=== PATIENT | male | born 1940 | race Caucasian/White ===

== ENCOUNTER 2020-10-07 08:06 | Outpatient (REF) | payer MEDICARE, SELFPAY ==
[2020-10-07 10:13] LABS: MANUAL DIFF FLAG NO
[2020-10-07 10:14] LABS: Basophils Absolute Auto 0.1 X10*3/uL (0.0-0.2); Basophils Percent Auto 1.1 % (0-2); Eosinophils Absolute Auto 0.2 X10*3/uL (0.0-0.4); Eosinophils Percent Auto 2.5 % (0-4); Hematocrit 35.1 % (42-52); Hemoglobin 11.4 g/dl (14.0-18.0); Imm Gran Abs Auto 0.01 X10*3/uL (0.00-0.03); Imm Gran Pct Auto 0.2 % (0.0-0.4); Lymphocytes Absolute Auto 2.1 X10*3/uL (1.2-4.9); Lymphocytes Percent Auto 32.6 % (20-40); Mean Corpuscular HGB Conc 32.5 g/dl (31.0-36.0); Mean Corpuscular Hemoglobin 28.9 pg (27.0-33.0); Mean Corpuscular Volume 88.9 fL (80-98); Mean Platelet Volume 11.1 fL (9.4-12.4); Monocytes Absolute Auto 0.6 X10*3/uL (0.1-1.2); Monocytes Percent Auto 9.6 % (2-11); Neutrophils Absolute Auto 3.5 X10*3/uL (2.0-8.3); Platelet Count 303 X10*3/uL (160-400); Red Blood Count 3.95 X10*6/uL (4.60-5.80); Red Cell Distribution Width 13.3 % (11.0-16.0); White Blood Count 6.5 X10*3/uL (4.8-10.8)
[2020-10-07 10:42] LABS: Alanine Aminotransferase 22 U/L (0-40); Albumin Level 4.1 g/dL (3.5-5.0); Alkaline Phosphatase 58 U/L (39-117); Anion Gap 15 (12-20); Aspartate Amino Transferase 23 U/L (5-37); Bilirubin Total 0.3 mg/dL (0.0-1.0); Blood Urea Nitrogen 21 mg/dL (9-16); Carbon Dioxide 24 mmol/L (22-29); Chloride 107 mmol/L (96-108); Cholesterol 150 mg/dL; Estimated Glomerular Filt Rate 60; Glucose Fasting 88 mg/dL (60-99); HDL Cholesterol 43 mg/dL; LDL Cholesterol Calculated 71 mg/dl; Potassium 5.3 mmol/l (3.3-5.1); Sodium 141 mmol/L (135-145); Total Protein 7.6 g/dL (6.5-8.0); Triglycerides 182 mg/dL
[2020-10-07 11:07] LABS: Thyroid Stimulating Hormone 1.59 uIU/mL (0.32-4.0)
[2020-10-07 11:24] LABS: Creatinine Urine 86.01 mg/dL; Microalbum/Creatinine Ratio Ur 5.8 ug/mg cr
[2020-10-07 11:43] LABS: Prostate Specific Antigen 6.44 ng/mL (<0.05-4.0)
== END 2020-10-07 08:07 | disposition home or self-care (01) ==
LOC: HO.10HDL 08:06
PROVIDERS: Visit Provider Physician Assistant
DX: E11.9 Type 2 diabetes mellitus without complications (principal); E78.5 Hyperlipidemia, unspecified; I63.9 Cerebral infarction, unspecified; Z12.5 Encounter for screening for malignant neoplasm of prostate
CPT/HCPCS: 36415; 80053; 80061; 82043; 84153; 84443; 85025

== ENCOUNTER 2021-02-12 07:48 | Outpatient (REF) | payer MEDICARE, SELFPAY ==
[2021-02-12 10:18] LABS: Hematocrit 34.1 % (42-52); Hemoglobin 10.8 g/dl (14.0-18.0); Mean Corpuscular HGB Conc 31.7 g/dl (31.0-36.0); Mean Corpuscular Hemoglobin 28.8 pg (27.0-33.0); Mean Corpuscular Volume 90.9 fL (80-98); Platelet Count 300 X10*3/uL (160-400); Red Blood Count 3.75 X10*6/uL (4.60-5.80); Red Cell Distribution Width 13.9 % (11.0-16.0); White Blood Count 6.4 X10*3/uL (4.8-10.8)
[2021-02-12 10:29] LABS: Estimated Average Glucose 186 mg/dL; Hemoglobin A1c % 8.1 %
[2021-02-12 10:53] LABS: Alanine Aminotransferase 18 U/L (0-40); Albumin Level 4.1 g/dL (3.5-5.0); Alkaline Phosphatase 57 U/L (39-117); Anion Gap 12 (12-20); Aspartate Amino Transferase 18 U/L (5-37); Bilirubin Direct 0.2 mg/dL (0.0-0.5); Bilirubin Total 0.4 mg/dL (0.0-1.0); Blood Urea Nitrogen 31 mg/dL (9-16); Carbon Dioxide 26 mmol/L (22-29); Chloride 106 mmol/L (96-108); Cholesterol 148 mg/dL; Estimated Glomerular Filt Rate 55; Glucose Random 102 mg/dL (60-115); HDL Cholesterol 47 mg/dL; LDL Cholesterol Calculated 79 mg/dl; Potassium 5.4 mmol/L (3.3-5.1); Sodium 139 mmol/L (135-145); Total Protein 7.5 g/dL (6.5-8.0); Triglycerides 110 mg/dL
[2021-02-12 11:06] LABS: Thyroid Stimulating Hormone 1.95 uIU/mL (0.32-4.0)
[2021-02-12 11:23] LABS: Folate 17.7 ng/mL (> or = 4.0); Vitamin B12 < 146 pg/mL (200-900)
[2021-02-16 12:47] LABS: Vitamin D 25-OH, D2 <4 ng/mL; Vitamin D 25-OH, D3 39 ng/mL; Vitamin D 25-OH, Total 39 ng/mL (30-100)
== END 2021-02-12 07:49 | disposition home or self-care (01) ==
LOC: HO.10HDL 07:48
PROVIDERS: Visit Provider Internal Medicine
DX: E11.9 Type 2 diabetes mellitus without complications (principal)
CPT/HCPCS: 36415; 80048; 80061; 80076; 82306; 82607; 82746; 83036; 84443; 85027

== ENCOUNTER 2021-08-20 08:03 | Outpatient (REF) | payer MEDICARE, SELFPAY ==
[2021-08-20 10:31] LABS: Hematocrit 34.6 % (42-52); Hemoglobin 11.3 g/dl (14.0-18.0); Mean Corpuscular HGB Conc 32.7 g/dl (31.0-36.0); Mean Corpuscular Hemoglobin 30.1 pg (27.0-33.0); Mean Corpuscular Volume 92.3 fL (80-98); Mean Platelet Volume 10.9 fL (9.4-12.4); Platelet Count 288 X10*3/uL (160-400); Red Blood Count 3.75 X10*6/uL (4.60-5.80); Red Cell Distribution Width 12.8 % (11.0-16.0); White Blood Count 6.5 X10*3/uL (4.8-10.8)
[2021-08-20 10:53] LABS: Creatinine Urine 88.87 mg/dL; Microalbum/Creatinine Ratio Ur 6.7 ug/mg cr
[2021-08-20 11:05] LABS: Alanine Aminotransferase 21 U/L (0-40); Alkaline Phosphatase 57 U/L (39-117); Aspartate Amino Transferase 19 U/L (5-37); Bilirubin Direct 0.2 mg/dL (0.0-0.5); Bilirubin Total 0.5 mg/dL (0.0-1.0); Cholesterol 149 mg/dL; HDL Cholesterol 39 mg/dL; LDL Cholesterol Calculated 83 mg/dl; Total Protein 7.2 g/dL (6.5-8.0); Triglycerides 138 mg/dL
[2021-08-20 11:09] LABS: Estimated Average Glucose 174 mg/dL; Hemoglobin A1c % 7.7 %
[2021-08-20 11:12] LABS: Thyroid Stimulating Hormone 2.19 uIU/mL (0.32-4.0)
== END 2021-08-20 08:04 | disposition home or self-care (01) ==
LOC: HO.10HDL 08:03
PROVIDERS: Visit Provider Internal Medicine
DX: D64.9 Anemia, unspecified (principal); E11.9 Type 2 diabetes mellitus without complications
CPT/HCPCS: 36415; 80061; 80076; 82043; 83036; 84443; 85027

== ENCOUNTER 2022-10-21 07:59 | Outpatient (REF) | payer MEDICARE, SELFPAY ==
[2022-10-21 10:42] LABS: Appearance Urine Clear; Color Urine Yellow; Glucose Urine UA >=1000 mg/dL (Negative); Leukocyte Esterase Urine Negative (Negative); Nitrite Urine Negative (Negative); PH 5.5 (5.0-9.0); UMIC TRIGGER UA YES; Urine Blood Negative (Negative); Urine Ketones Negative (Negative); Urine Protein Negative (Neg-Trace)
[2022-10-21 10:49] LABS: Hematocrit 36.3 % (42.0-52.0); Hemoglobin 11.7 g/dl (14.0-18.0); Mean Corpuscular HGB Conc 32.2 g/dl (31.0-36.0); Mean Corpuscular Hemoglobin 28.9 pg (27.0-33.0); Mean Corpuscular Volume 89.6 fL (80.0-98.0); Mean Platelet Volume 10.8 fL (9.4-12.4); Platelet Count 387 X10*3/uL (160-400); Red Blood Count 4.05 X10*6/uL (4.60-5.80); Red Cell Distribution Width 13.2 % (11.0-16.0); White Blood Count 6.6 X10*3/uL (4.8-10.8)
[2022-10-21 10:56] LABS: Bacteria Urine None Seen (None Seen); Hyaline Casts Urine 0-2 /LPF (0-2); RBC Urine 0-2 /HPF (0-2); Squamous Epithelial Cell Urine 0-2 /HPF (0-2); WBC Urine 0-5 /HPF (0-5)
[2022-10-21 11:44] LABS: Alanine Aminotransferase 20 U/L (0-40); Albumin Level 4.2 g/dL (3.5-5.0); Alkaline Phosphatase 64 U/L (39-117); Anion Gap 13 (12-20); Aspartate Amino Transferase 19 U/L (5-37); Bilirubin Total 0.4 mg/dL (0.0-1.0); Blood Urea Nitrogen 26 mg/dL (9-16); Calcium 9.7 mg/dL (8.4-10.2); Carbon Dioxide 27 mmol/L (22-29); Chloride 106 mmol/L (96-108); Cholesterol 171 mg/dL; Creatinine Urine 80.83 mg/dL; Estimated Average Glucose 203 mg/dL; Estimated Glomerular Filt Rate 57; Glucose Random 129 mg/dL (60-115); HDL Cholesterol 44 mg/dL; Hemoglobin A1c % 8.7 %; LDL Cholesterol Calculated 99 mg/dl; Microalbum/Creatinine Ratio Ur 7.4 ug/mg cr; Potassium 5.2 mmol/L (3.3-5.1); Sodium 141 mmol/L (135-145); Total Protein 7.8 g/dL (6.5-8.0); Triglycerides 143 mg/dL
[2022-10-21 11:51] LABS: Bilirubin Direct < 0.2 mg/dL (0.0-0.5)
== END 2022-10-21 08:00 | disposition home or self-care (01) ==
LOC: HO.10HDL 07:59
PROVIDERS: Visit Provider Internal Medicine
DX: M19.90 Unspecified osteoarthritis, unspecified site (principal); I63.9 Cerebral infarction, unspecified; E11.9 Type 2 diabetes mellitus without complications; E78.5 Hyperlipidemia, unspecified
CPT/HCPCS: 36415; 80048; 80061; 80076; 81001; 82043; 83036; 85027

== ENCOUNTER 2023-01-31 08:13 | Outpatient (REF) | payer MEDICARE, SELFPAY ==
[2023-01-31 10:42] LABS: Hematocrit 33.3 % (42.0-52.0); Hemoglobin 10.6 g/dl (14.0-18.0); Mean Corpuscular HGB Conc 31.8 g/dl (31.0-36.0); Mean Corpuscular Hemoglobin 28.7 pg (27.0-33.0); Mean Corpuscular Volume 90.2 fL (80.0-98.0); Mean Platelet Volume 10.7 fL (9.4-12.4); Platelet Count 344 X10*3/uL (160-400); Red Blood Count 3.69 X10*6/uL (4.60-5.80); Red Cell Distribution Width 13.8 % (11.0-16.0); White Blood Count 7.3 X10*3/uL (4.8-10.8)
[2023-01-31 10:56] LABS: Estimated Average Glucose 154 mg/dL
[2023-01-31 10:57] LABS: Anion Gap 14 (12-20); Blood Urea Nitrogen 31 mg/dL (9-16); Calcium 9.1 mg/dL (8.4-10.2); Carbon Dioxide 25 mmol/L (22-29); Chloride 107 mmol/L (96-108); Estimated Glomerular Filt Rate > 60; Glucose Random 91 mg/dL (60-115); Potassium 5.5 mmol/L (3.3-5.1); Sodium 140 mmol/L (135-145)
[2023-01-31 11:04] LABS: Appearance Urine Clear; Color Urine Yellow; Glucose Urine UA 100 mg/dL (Negative); Leukocyte Esterase Urine Negative (Negative); Nitrite Urine Negative (Negative); PH 6.5 (5.0-9.0); Urine Blood Negative (Negative); Urine Ketones Negative (Negative); Urine Protein Negative (Neg-Trace)
== END 2023-01-31 08:14 | disposition home or self-care (01) ==
LOC: HO.10HDL 08:13
PROVIDERS: Visit Provider Internal Medicine
DX: E78.5 Hyperlipidemia, unspecified (principal); I63.9 Cerebral infarction, unspecified; M19.90 Unspecified osteoarthritis, unspecified site; E11.9 Type 2 diabetes mellitus without complications
CPT/HCPCS: 36415; 80048; 81003; 83036; 85027

== ENCOUNTER 2023-02-04 16:24 | Emergency (ER) | payer OTHER, MEDICARE, SELFPAY ==
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
[2023-02-04 17:07] VITALS: BP 136/68; PULSE 91; RESP 18; TEMP 36.6; O2SAT 100; BMI 22.9
--- NOTE | 2023-02-04 17:14 | PC.NURSE ---
amb with steady gait denies dizziness pain or weakness aox4 will follow up with pcp or return with any worsening symptoms
== END 2023-02-04 17:34 | disposition home or self-care (01) ==
PROVIDERS: Emergency Provider Emergency Medicine; PCP Internal Medicine
DX: M79.622 Pain in left upper arm (principal); E11.9 Type 2 diabetes mellitus without complications; Z79.4 Long term (current) use of insulin; Z79.899 Other long term (current) drug therapy
CPT/HCPCS: 99282

== ENCOUNTER 2023-07-28 07:51 | Outpatient (REF) | payer MEDICARE, SELFPAY ==
[2023-07-28 10:57] LABS: Hematocrit 35.5 % (42.0-52.0); Hemoglobin 11.4 g/dl (14.0-18.0); Mean Corpuscular HGB Conc 32.1 g/dl (31.0-36.0); Mean Corpuscular Hemoglobin 29.2 pg (27.0-33.0); Mean Corpuscular Volume 90.8 fL (80.0-98.0); Mean Platelet Volume 10.5 fL (9.4-12.4); Platelet Count 332 X10*3/uL (160-400); Red Blood Count 3.91 X10*6/uL (4.60-5.80); Red Cell Distribution Width 13.4 % (11.0-16.0); White Blood Count 6.7 X10*3/uL (4.8-10.8)
[2023-07-28 11:24] LABS: Estimated Average Glucose 146 mg/dL; Hemoglobin A1c % 6.7 % (<6.0)
[2023-07-28 11:29] LABS: Alanine Aminotransferase 17 U/L (0-40); Albumin Level 4.1 g/dL (3.5-5.0); Alkaline Phosphatase 60 U/L (39-117); Anion Gap 11 (12-20); Aspartate Amino Transferase 20 U/L (5-37); Bilirubin Direct 0.1 mg/dL (0.0-0.5); Bilirubin Total 0.4 mg/dL (0.0-1.0); Blood Urea Nitrogen 22 mg/dL (9-16); Calcium 9.7 mg/dL (8.4-10.2); Carbon Dioxide 26 mmol/L (22-29); Chloride 110 mmol/L (96-108); Cholesterol 146 mg/dL (<200); Estimated Glomerular Filt Rate 53; Glucose Random 96 mg/dL (60-115); HDL Cholesterol 48 mg/dL (>40); LDL Cholesterol Calculated 78 mg/dL (<100); Potassium 5.2 mmol/L (3.3-5.1); Sodium 142 mmol/L (135-145); Total Protein 7.8 g/dL (6.5-8.0); Triglycerides 100 mg/dL (<150)
[2023-07-28 11:32] LABS: Thyroid Stimulating Hormone 1.91 uIU/mL (0.32-4.0)
[2023-07-28 11:33] LABS: Microalbumin Urine < 5.0 mg/L
[2023-07-28 15:35] LABS: Prostate Specific Antigen Scr 10.11 ng/mL (<0.05-4.0)
== END 2023-07-28 07:52 | disposition home or self-care (01) ==
LOC: HO.10HDL 07:51
PROVIDERS: Visit Provider Internal Medicine
DX: Z12.5 Encounter for screening for malignant neoplasm of prostate (principal); E11.9 Type 2 diabetes mellitus without complications
CPT/HCPCS: 36415; 80048; 80061; 80076; 82043; 82570; 83036; 84153; 84443; 85027

== ENCOUNTER 2023-08-04 09:16 | Outpatient (AMB) | payer MEDICARE, SELFPAY ==
--- NOTE | 2023-08-04 09:25 | MHC.PC.OV ---
Vital Signs 08/04/23 09:26 Height 5 ft 10 in Weight 163 lb 4 oz BMI 23.4 BP 120/58 L Blood Pressure Location Rt brachial Position Sitting Pulse 80 Pulse Source Pulse Oximeter Pulse Oximetry (%) 97 Oxygen Delivery Method Room Air Intake Visit Reasons: 6M follow up Intake Note: Patient is here to follow up on HTN, DM, Hyperlipidemia. 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 Patient is at baseline state of health. Since he started taking the 2 kinds of insulin, his sugars are more in range. He is able to function and do all activities of daily living. Reporting symptoms of sinus congestion, sore throat and difficulty swallowing. Low-grade fever. No family member is sick. No recent travel. Patient reports symptoms of malaise and fatigue in the past few days. [facility] Medical History Cerebrovascular accident (CVA) determined by clinical assessment Essential hypertension Hypercholesterolemia Medicare annual wellness visit, initial Osteoarthritis Type 2 diabetes mellitus without complications Surgical History History of colonoscopy History of hernia repair History of appendectomy Family History Father Medical history unknown Mother Medical history unknown Social History Housing: House Alcohol intake: current Alcohol intake frequency: holidays/special occasions only Patient Tobacco Use Status: Never used Tobacco e-Cigarette/Vaping Use: Never Used Second Hand Smoke Exposure: No service: No Current occupational status: retired Cognitive needs: No Hearing needs: No Vision needs: Yes Questionnaire Thrive Questionnaire Date Thrive assessed: 02/03/23 LAKEISHA-7 AMB Questionnaire LAKEISHA-7 Date LAKEISHA - 7 assessed: 02/03/23 Source: Developed by Drs. Silvio Montes, Yaharia Krause, Mauricio Jenkins and colleagues, with an educational vinayak from [employer]. Physical exam (Primary Care) Vital Signs: Last Vital Signs Pulse 80 08/04/23 09:26 BP 120/58 L 08/04/23 09:26 Pulse Ox 97 08/04/23 09:26 Oxygen Delivery Method Room Air 08/04/23 09:26 BMI result Body Mass Index 23.4 Tobacco/Smoking Status: Tobacco use Status Tobacco use date assessed 08/04/23 08/04/23 09:32 Patient Tobacco Use Status Never used Tobacco 08/04/23 09:32 e-Cigarette/Vaping Use Never Used 08/04/23 09:32 Thrive Assessment: Date of Thrive Assessment Date Thrive assessed 02/03/23 08/04/23 09:32 Const General: cooperative and healthy appearing Nutritional Appearance: well nourished Orientation/consciousness: patient oriented x3 Limitations: no limitations HENMT Head: Yes normal to inspection Eyes General: appearance normal, both eyes and all related structures Neck Neck: Yes normal visual inspection Chest Chest palpation & inspection: normal palpation of entire chest wall Resp Effort & Inspection: normal respiratory effort Neuro General: patient oriented x3 Assessment and Plan Assessment & Plan (1) Elevated PSA: Code(s): R97.20 - Elevated prostate specific antigen [PSA] Plan: A referral to urologist has been made. Patient was made aware of his elevated PSA and the possibilities that cause elevated PSA. (2) Cerebrovascular accident (CVA) determined by clinical assessment: Code(s): I63.9 - Cerebral infarction, unspecified Plan: This condition is stable. 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 (3) Type 2 diabetes mellitus without complications: Code(s): E11.9 - Type 2 diabetes mellitus without complications Plan: A1c is improved. Current A1c level is 6.7. Continue medications at same dosage. (4) Essential hypertension: Code(s): I10 - Essential (primary) hypertension Plan: Blood pressure is stable. Continue medications at same dosage. (5) Upper respiratory tract infection: Code(s): J06.9 - Acute upper respiratory infection, unspecified Qualifiers: URI type: unspecified viral URI Qualified Code(s): J06.9 - Acute upper respiratory infection, unspecified Plan: . Increase fluid intake. Tylenol for aches and pains. If symptoms worsen, follow-up here for a recheck. No antibiotics necessary. Orders: Referrals Urology Referral R97.20 - Elevated prostate specific antigen [PSA] Medications: Refilled insulin lispro (Humalog KwikPen U-200 Insulin) 10 units (0.05 mL) subcut TID 6 mL 1RF insulin glargine (Lantus Solostar U-100 Insulin) 20 units (0.2 mL) subcut BEDTIME 15 mL 5RF Coding Level of Care Code Est Pt Level 4 (02868) Diagnoses Elevated PSA R97.20 Cerebrovascular accident (CVA) determined by clinical assessment I63.9 Type 2 diabetes mellitus without complications E11.9 Essential hypertension I10 Viral upper respiratory tract infection J06.9 URI type: unspecified viral URI
[2023-08-04 09:26] VITALS: BP 120/58; PULSE 80; O2SAT 97; BMI 23.4
== END 2023-08-04 10:18 | disposition home or self-care (01) ==
PROVIDERS: PCP Internal Medicine; Visit Provider Internal Medicine
DX: R97.20 Elevated prostate specific antigen [PSA] (principal); I69.354 Hemiplegia and hemiparesis following cerebral infarction affecting left non-dominant side; E11.9 Type 2 diabetes mellitus without complications; I10 Essential (primary) hypertension
CPT/HCPCS: 99214

== ENCOUNTER 2023-10-27 07:59 | Outpatient (REF) | payer MEDICARE, SELFPAY ==
[2023-10-27 10:25] LABS: Hematocrit 35.4 % (42.0-52.0); Hemoglobin 11.5 g/dl (14.0-18.0); Mean Corpuscular HGB Conc 32.5 g/dl (31.0-36.0); Mean Corpuscular Hemoglobin 28.5 pg (27.0-33.0); Mean Corpuscular Volume 87.8 fL (80.0-98.0); Mean Platelet Volume 10.2 fL (9.4-12.4); Platelet Count 346 X10*3/uL (160-400); Red Blood Count 4.03 X10*6/uL (4.60-5.80); Red Cell Distribution Width 13.2 % (11.0-16.0); White Blood Count 6.1 X10*3/uL (4.8-10.8)
[2023-10-27 10:50] LABS: Alanine Aminotransferase 17 U/L (0-40); Albumin Level 3.7 g/dL (3.5-5.0); Alkaline Phosphatase 59 U/L (39-117); Anion Gap 16 (12-20); Aspartate Amino Transferase 22 U/L (5-37); Bilirubin Direct 0.2 mg/dL (0.0-0.5); Bilirubin Total 0.4 mg/dL (0.0-1.0); Blood Urea Nitrogen 38 mg/dL (9-16); Calcium 9.2 mg/dL (8.4-10.2); Carbon Dioxide 23 mmol/L (22-29); Chloride 102 mmol/L (96-108); Cholesterol 120 mg/dL (<200); Estimated Glomerular Filt Rate 50; Glucose Random 138 mg/dL (60-115); HDL Cholesterol 33 mg/dL (>40); LDL Cholesterol Calculated 63 mg/dL (<100); Sodium 136 mmol/L (135-145); Total Protein 7.8 g/dL (6.5-8.0); Triglycerides 123 mg/dL (<150)
[2023-10-27 11:00] LABS: Thyroid Stimulating Hormone 1.66 uIU/mL (0.32-4.0)
[2023-10-27 11:01] LABS: Prostate Specific Antigen Scr 8.95 ng/mL (<0.05-4.0)
[2023-10-27 11:02] LABS: Estimated Average Glucose 169 mg/dL; Hemoglobin A1c % 7.5 % (<6.0)
== END 2023-10-27 08:00 | disposition home or self-care (01) ==
LOC: HO.10HDL 07:59
PROVIDERS: Visit Provider Internal Medicine
DX: Z12.5 Encounter for screening for malignant neoplasm of prostate (principal); I10 Essential (primary) hypertension; E11.9 Type 2 diabetes mellitus without complications; R97.20 Elevated prostate specific antigen [PSA]
CPT/HCPCS: 36415; 80048; 80061; 80076; 83036; 84153; 84443; 85027

== ENCOUNTER 2023-11-03 12:28 | Outpatient (AMB) | payer MEDICARE, SELFPAY ==
--- NOTE | 2023-11-03 12:40 | A.OFFPC_ITS ---
Vital Signs 11/03/23 12:41 Height 5 ft 10 in Weight 160 lb 4 oz BMI 23.0 BP 120/70 Blood Pressure Location Rt brachial Position Sitting Pulse 70 Pulse Source Pulse Oximeter Pulse Oximetry (%) 97 Oxygen Delivery Method Room Air Intake Visit Reasons: PE Intake Note: Patient is here today for a physical. Tests Superintendent Required: No Sand Operator: Not Required per policy Accompanied by: Self / Same As Patient Allergies No Known Allergies Allergy (Verified 11/03/23 13:31) Medication List - Last Reconciled 11/03/23 by Garfield Gongora MD blood sugar diagnostic (FreeStyle Lite Strips) 1 strip miscellaneous BID ferrous sulfate (Feosol) 325 mg PO DAILY insulin glargine (Lantus Solostar U-100 Insulin) 20 units (0.2 mL) subcut BEDTIME insulin lispro (Humalog KwikPen U-200 Insulin) 10 units (0.05 mL) subcut TID lisinopril 20 mg PO DAILY metformin 1,000 mg PO BID pen needle, diabetic (BD Ultra-Fine Short Pen Needle) 1 ea miscellaneous DAILY simvastatin 20 mg PO BEDTIME Tobacco use date assessed: 11/03/23 HPI PE HPI Details 83-year-old male presents to the office requesting an annual physical. Since last visit patient had a bout of respiratory illness which lasted 2 weeks. Illness has finally subsided. COUNT INCLUDES THE [facility] Medical History Osteoarthritis Cerebrovascular accident (CVA) determined by clinical assessment Hypercholesterolemia Essential hypertension Type 2 diabetes mellitus without complications Medicare annual wellness visit, initial Surgical History History of colonoscopy History of hernia repair History of appendectomy Family History Father Medical history unknown Mother Medical history unknown Social History Housing: House Alcohol intake: current Alcohol intake frequency: holidays/special occasions only Patient Tobacco Use Status: Never used Tobacco e-Cigarette/Vaping Use: Never Used Second Hand Smoke Exposure: No service: No Current occupational status: retired Cognitive needs: No Hearing needs: No Vision needs: Yes Questionnaire Thrive Questionnaire Date Thrive assessed: 02/03/23 LAKEISHA-7 AMB Questionnaire LAKEISHA-7 Date LAKEISHA - 7 assessed: 02/03/23 Source: Developed by Drs. Silvio Montes, Yahaira Krause, Mauricio Jenkins and colleagues, with an educational vinayak from [employer]. Physical exam (Primary Care) Vital Signs: Last Vital Signs Pulse 70 11/03/23 12:41 BP 120/70 11/03/23 12:41 Pulse Ox 97 11/03/23 12:41 Oxygen Delivery Method Room Air 11/03/23 12:41 BMI result Body Mass Index 23.0 Tobacco/Smoking Status: Tobacco use Status Tobacco use date assessed 11/03/23 11/03/23 12:50 Patient Tobacco Use Status Never used Tobacco 11/03/23 12:50 e-Cigarette/Vaping Use Never Used 11/03/23 12:50 Thrive Assessment: Date of Thrive Assessment Date Thrive assessed 02/03/23 11/03/23 12:50 Const General: cooperative and healthy appearing Nutritional Appearance: well nourished Orientation/consciousness: patient oriented x3 Limitations: no limitations HENMT Head: Yes normal to inspection Eyes General: appearance normal, both eyes and all related structures Neck Neck: Yes normal visual inspection Chest Chest palpation & inspection: normal palpation of entire chest wall Resp Effort & Inspection: normal respiratory effort Neuro Other: Fixed flexion deformity. General: patient oriented x3 Assessment and Plan Assessment & Plan (1) Adult general medical exam: Code(s): Z00.00 - Encounter for general adult medical examination without abnormal findings Plan: Up-to-date on the flu shot. (2) Cerebrovascular accident (CVA) determined by clinical assessment: Code(s): I63.9 - Cerebral infarction, unspecified Plan: Condition is stable. (3) Type 2 diabetes mellitus without complications: Code(s): E11.9 - Type 2 diabetes mellitus without complications Plan: A1c is trending upwards. Continue medications at same dosage. (4) Elevated PSA: Code(s): R97.20 - Elevated prostate specific antigen [PSA] Plan: Patient has an appointment with the urologist in November. Coding Level of Care Code Est Pt Prev Care >65y(94052) Diagnoses Adult general medical exam Z00.00 Cerebrovascular accident (CVA) determined by clinical assessment I63.9 Type 2 diabetes mellitus without complications E11.9 Elevated PSA R97.20
[2023-11-03 12:41] VITALS: BP 120/70; PULSE 70; O2SAT 97; BMI 23.0
== END 2023-11-03 13:28 | disposition home or self-care (01) ==
PROVIDERS: Visit Provider Internal Medicine
DX: Z00.00 Encounter for general adult medical examination without abnormal findings (principal); I63.9 Cerebral infarction, unspecified; E11.9 Type 2 diabetes mellitus without complications; R97.20 Elevated prostate specific antigen [PSA]
CPT/HCPCS: 99397

== ENCOUNTER 2023-11-17 09:54 | Outpatient (AMB) | payer MEDICARE, SELFPAY ==
--- NOTE | 2023-11-17 10:39 | MHC.OFFVIS ---
Intake Intake Visit Reasons: Elevated PSA 10.11 Intake Note: New Patient is Present for Elevated PSA Current PSA 10.11 Patient has never seen a Urologist was referred by His Primary physician Antibiotic Allergies: None Blood Thinner: Aspirin Allergies No Known Allergies Allergy (Verified 11/17/23 10:41) Medication List - Last Reconciled 11/17/23 by Sukumar Zhao MD aspirin (Adult Aspirin Regimen) 81 mg PO DAILY blood sugar diagnostic (FreeStyle Lite Strips) 1 strip miscellaneous BID ferrous sulfate (Feosol) 325 mg PO DAILY finasteride 5 mg PO DAILY 90 days insulin glargine (Lantus Solostar U-100 Insulin) 20 units (0.2 mL) subcut BEDTIME insulin lispro (Humalog KwikPen U-200 Insulin) 10 units (0.05 mL) subcut TID lisinopril 20 mg PO DAILY metformin 1,000 mg PO BID pen needle, diabetic (BD Ultra-Fine Short Pen Needle) 1 ea miscellaneous DAILY simvastatin 20 mg PO BEDTIME HPI HPI Comments History of Present Illness Details Carlos is a pleasant male. He is a patient of Dr. [place]. He is seen for the following urologic conditions - elevated PSA Elevated PSA Found through primary care PSA 08/06 10.1, 11/05 8.9 MARYLOU 2+, minimal nodules Trial finasteride [facility] Medical History Osteoarthritis Cerebrovascular accident (CVA) determined by clinical assessment Hypercholesterolemia Essential hypertension Type 2 diabetes mellitus without complications Medicare annual wellness visit, initial Surgical History History of colonoscopy History of hernia repair History of appendectomy Family History Father Medical history unknown Mother Medical history unknown Social History Housing: House Alcohol intake: current Alcohol intake frequency: holidays/special occasions only Patient Tobacco Use Status: Never used Tobacco e-Cigarette/Vaping Use: Never Used Second Hand Smoke Exposure: No service: No Current occupational status: retired Cognitive needs: No Hearing needs: No Vision needs: Yes Review of Systems Const Denies chills and Denies fever(s) Card Reports no additional complaints and Denies syncope Resp Denies cough GI Denies abdominal pain and Denies heartburn Reports as per HPI and Denies change in libido Neuro Denies syncope Psych Denies change in libido Endo Denies change in libido Physical Exam Const General: cooperative, healthy appearing, comfortable and no acute distress Orientation/consciousness: patient oriented x3 HEENT Face and sinus: Yes normal facial exam Mouth: moist mucous membranes Neck Neck: Yes normal visual inspection, Yes full ROM and Yes trachea midline Chest Chest palpation & inspection: normal inspection of the chest Resp Effort & Inspection: normal respiratory effort, able to speak in complete sentences and no respiratory distress GI Inspection: Yes normal to inspection Rectal Exam - Male: Yes normal sphincter tone and Yes prostate normal Male General Exam: Yes normal external exam Penis: normal penis and circumcised Meatus: meatus normal Scrotum: scrotum normal Testes: Testes normal Back/Spine/Pelvis Cervical Spine: normal cervical lordosis Thoracic/Lumbar Spine: thoracic and lumbar spine normal to inspection Skin General skin exam: no rashes or lesions noted Neuro General: patient oriented x3, gait normal, tone normal and moves all extremities Extrem General: Yes normal to inspection and Yes capillary refill normal Assessment & Plan Assessment & Plan (1) Elevated PSA: Code(s): R97.20 - Elevated prostate specific antigen [PSA] Plan Four month follow-up PSA Trial finasteride Orders: Orders PSA,Total (Free>4and<10) 4 Months R97.20 - Elevated prostate specific antigen [PSA] Medications: New finasteride 5 mg PO DAILY 90 days 90 tabs 1RF R97.20 - Elevated prostate specific antigen [PSA] Patient Instructions: Imaging studies, laboratory and physical exam results were discussed and reviewed in detail. No major barriers to patient understanding were identified. An opportunity to ask questions regarding the treatment plan was provided. All questions were answered. The patient expressed understanding and agreement with the above treatment plan. The patient is aware they should contact our office by phone for worsening of their current condition or the appearance of new urologic symptoms. Compliance is encouraged with any medications and followup testing that is ordered. It is a privilege to participate in the urologic care of your patient. If you have any questions or concerns regarding treatment for the above conditions, or other urologic issues, please do not hesitate to contact me. The office telephone contact is [phone]. This note is constructed using voice recognition software. While every effort has been made to ensure accuracy toppiece chopper errors may have been included. Yours sincerely, Dr Sukumar Zhao MD, LES[facility] - Urology Providers of Expert, Compassionate Care for the Genitourinary System Coding Level of Care Code New Pt Level 4 (03684) Diagnoses Elevated PSA R97.20
== END 2023-11-17 10:57 | disposition home or self-care (01) ==
PROVIDERS: PCP Internal Medicine; Visit Provider Urology
DX: R97.20 Elevated prostate specific antigen [PSA] (principal)
CPT/HCPCS: 99204

== ENCOUNTER → 2023-11-17 09:54 | Outpatient (BNVA) | payer MEDICARE, OTHER, SELFPAY | PROVIDERS: PCP Internal Medicine; Visit Provider Urology | DX: R97.20 Elevated prostate specific antigen [PSA] (principal) | CPT/HCPCS: 99202 ==

== ENCOUNTER 2024-02-16 08:25 | Outpatient (AMB) | payer MEDICARE, SELFPAY ==
--- NOTE | 2024-02-16 08:44 | A.OFFPC_ITS ---
Vital Signs 02/16/24 08:46 Height 5 ft 10 in Weight 168 lb 4 oz BMI 24.1 BP 108/60 Blood Pressure Location Lt brachial Position Sitting Pulse 95 Pulse Source Pulse Oximeter Pulse Oximetry (%) 95 Oxygen Delivery Method Room Air Intake Visit Reasons: 3M follow up Intake Note: Patient is here to follow up on DM, Hyperlipidemia, HTN . Senior Network Administrator Required: No Denture Technician: Not Required per policy Accompanied by: Self / Same As Patient Allergies No Known Allergies Allergy (Verified 02/26/24 19:12) Medication List - Last Reconciled 02/26/24 by Garfield Gongora MD aspirin (Adult Aspirin Regimen) 81 mg PO DAILY blood sugar diagnostic (FreeStyle Lite Strips) 1 strip miscellaneous BID ferrous sulfate (Feosol) 325 mg PO DAILY finasteride 5 mg PO DAILY 90 days insulin glargine (Lantus Solostar U-100 Insulin) 20 units (0.2 mL) subcut BEDTIME insulin lispro (Humalog KwikPen U-200 Insulin) 10 units (0.05 mL) subcut TID lisinopril 20 mg PO DAILY metformin 1,000 mg PO BID pen needle, diabetic (BD Ultra-Fine Short Pen Needle) 1 ea miscellaneous DAILY simvastatin 20 mg PO BEDTIME Tobacco use date assessed: 02/16/24 Fall risk assessment: No Falls in past year Last assessed Fall Risk: 02/16/24 Dental Screening Dental Screen Date: 02/16/24 Did you have a dental visit in the last 12 months?: Yes Did you have a dental problem in the last 6 months where you did not have access to dental care?: No Was dental information given to patient?: Patient has dentist HPI 3M follow up HPI Details 83-year-old male presents to the office to discuss his chronic medical conditions. He is compliant with medications and reporting no side effects. Able to function and do all activities of daily living. Does not check his blood sugars often. [facility] Medical History Osteoarthritis Cerebrovascular accident (CVA) determined by clinical assessment Hypercholesterolemia Essential hypertension Type 2 diabetes mellitus without complications Medicare annual wellness visit, initial Surgical History History of colonoscopy History of hernia repair History of appendectomy Family History Father Medical history unknown Mother Medical history unknown Social History Housing: House Alcohol intake: current Alcohol intake frequency: holidays/special occasions only Patient Tobacco Use Status: Never used Tobacco e-Cigarette/Vaping Use: Never Used Second Hand Smoke Exposure: No service: No Current occupational status: retired Cognitive needs: No Hearing needs: No Vision needs: Yes Questionnaire PHQ-9 Over the last 2 weeks, how often have you been bothered by any of the following problems? 1. Little interest or pleasure in doing things: not at all 2. Feeling down, depressed, or hopeless: not at all 3. Trouble falling or staying asleep, or sleeping too much: not at all 4. Feeling tired or having little energy: not at all 5. Poor appetite or overeating: not at all 6. Feeling bad about yourself - or that you are a failure or have let yourself or your family down: not at all 7. Trouble concentrating on things, such as reading the newspaper or watching television: not at all 8. Moving or speaking so slowly that other people could have noticed. Or the opposite - being so fidgety or restless that you have been moving around a lot more than usual: not at all 9. Thoughts that you would be better off or of hurting yourself in some way: not at all Total score: 0 Depression Screening Interpretation: Negative Depression Screening Done: Yes Source: Developed by Drs. Silvio Montes, Yahaira Krause, Mauricio Jenkins and colleagues, with an educational vinayak from [employer]. Thrive Questionnaire Date Thrive assessed: 02/16/24 I am a: Patient What is your living situation today?: I have a steady place to live Within the past 12 months, did the food you bought not last and you didn't have the money to get more?: Never true Within the past 12 months, did you worry whether your food would run out before you got money to buy more?: Never true Do you have trouble paying for medicines?: No Do you have trouble getting transportation to medical appointments?: No Do you have trouble paying your heating and electricity bill?: No Do you have trouble taking care of your child, family member or friend?: No Do you have trouble with day-to-day activities such as bathing, preparing meals, shopping, managing finances, etc.?: No Are you currently unemployed and looking for a job?: No Are you interested in more education?: No Currently or been in a relationship where the following occur: no concerns reported THRIVE Score: 0 AUDIT C Alcohol Use Questionnaire (AUDIT-C) 1. How often do you have a drink containing alcohol?: Never Total Score: 0 LAKEISHA-7 AMB Questionnaire LAKEISHA-7 Date LAKEISHA - 7 assessed: 02/16/24 Feeling nervous, anxious, or on edge: 0 = Not at all Not being able to stop or control worryin = Not at all Worrying too much about different things: 0 = Not at all Trouble relaxin = Not at all Being so restless that it is hard to sit still: 0 = Not at all Becoming easily annoyed or irritable: 0 = Not at all Feeling afraid as if something awful might happen: 0 = Not at all Total LAKEISHA-7 score (0-4 normal; 5-9 mild; 10-14 moderate; 15-21 severe): 0 Source: Developed by Drs. Silvio Montes, Yahaira Krause, Mauricio Jenkins and colleagues, with an educational vinayak from [employer]. Physical exam (Primary Care) Vital Signs: Last Vital Signs Pulse 95 02/16/24 08:46 BP 108/60 02/16/24 08:46 Pulse Ox 95 02/16/24 08:46 Oxygen Delivery Method Room Air 02/16/24 08:46 BMI result Body Mass Index 24.1 Tobacco/Smoking Status: Tobacco use Status Tobacco use date assessed 02/16/24 02/16/24 08:57 Patient Tobacco Use Status Never used Tobacco 02/16/24 08:57 e-Cigarette/Vaping Use Never Used 02/16/24 08:57 PHQ-9: PHQ-9 Score PHQ-9: Total score 0 02/16/24 09:14 Depression Screening Interpretation: Negative Thrive Assessment: Date of Thrive Assessment Date Thrive assessed 02/16/24 02/16/24 08:57 Currently or been in a relationship where the following occur: no concerns reported Const General: cooperative and healthy appearing Nutritional Appearance: well nourished Orientation/consciousness: patient oriented x3 Limitations: no limitations HENMT Head: Yes normal to inspection Eyes General: appearance normal, both eyes and all related structures Neck Neck: Yes normal visual inspection Chest Chest palpation & inspection: normal palpation of entire chest wall Resp Effort & Inspection: normal respiratory effort Neuro General: patient oriented x3 Results AMB Hemoglobin A1c AMB Hemoglobin A1c 6.7 % Last Edit by DANA Pacheco on 02/16/24 08:58 Results Reviewed Results Reviewed: Laboratory Last Values Hgb A1c (Clinic) 6.7 % (4.0-6.0) H 02/16/24 08:43 Assessment and Plan Assessment & Plan (1) Type 2 diabetes mellitus without complications: Code(s): E11.9 - Type 2 diabetes mellitus without complications Plan: Hemoglobin A1c is 6.7. Continue medications at same dosage. Orders: Orders AMB Hemoglobin A1c 02/16/24 E11.9 - Type 2 diabetes mellitus without complications Coding Level of Care Code Est Pt Level 3 (94868) Diagnoses Type 2 diabetes mellitus without complications E11.9
[2024-02-16 08:46] VITALS: BP 108/60; PULSE 95; O2SAT 95; BMI 24.1
== END 2024-02-16 09:28 | disposition home or self-care (01) ==
PROVIDERS: PCP Internal Medicine; Visit Provider Internal Medicine
DX: E11.9 Type 2 diabetes mellitus without complications (principal)
CPT/HCPCS: 83036; 99213

== ENCOUNTER 2024-04-30 07:39 | Outpatient (REF) | payer MEDICARE, SELFPAY ==
[2024-05-01 14:18] LABS: Free Prostate Spec Ag 1.2 ng/mL; Percent Free Prostate Spec Ag 14 % (calc) (>25); Prostate Specific Ag Total 8.3 ng/mL (< OR = 4.0)
== END 2024-04-30 07:40 | disposition home or self-care (01) ==
LOC: HO.10HDL 07:39
PROVIDERS: Visit Provider Urology
DX: R97.20 Elevated prostate specific antigen [PSA] (principal); Z12.5 Encounter for screening for malignant neoplasm of prostate
CPT/HCPCS: 36415; 84153; 84154

== ENCOUNTER 2024-05-08 09:08 | Outpatient (AMB) | payer MEDICARE, SELFPAY ==
--- NOTE | 2024-05-08 10:08 | A.OFFVIS_ITS ---
Intake Visit Reasons: PSA Follow Up(Pending) Intake Note: Patient is present for PSA Urology Medication:Finasteride Antibiotic Allergy:none Blood Thinner:aspirin PT states nothing is bothering him and everything is ok. Security Management Specialist Required: No Allergies No Known Allergies Allergy (Verified 05/08/24 10:09) Medication List - Last Reconciled 05/08/24 by Sukumar Zhao MD aspirin (Adult Aspirin Regimen) 81 mg PO DAILY blood sugar diagnostic (FreeStyle Lite Strips) 1 strip miscellaneous BID ferrous sulfate (Feosol) 325 mg PO DAILY finasteride 5 mg PO DAILY 90 days insulin glargine (Lantus Solostar U-100 Insulin) 20 units (0.2 mL) subcut BEDTIME insulin lispro (Humalog KwikPen U-200 Insulin) 10 units (0.05 mL) subcut TID lisinopril 20 mg PO DAILY metformin 1,000 mg PO BID pen needle, diabetic (BD Ultra-Fine Short Pen Needle) 1 ea miscellaneous DAILY simvastatin 20 mg PO BEDTIME HPI Comments Details: Carlos is a pleasant male. He is a patient of Dr. [place]. He is seen for the following urologic conditions - elevated PSA Slight decline with finasteride Continue Q six-month follow-up Background insulin-dependent diabetic Elevated PSA Found through primary care PSA 08/06 10.1, 11/05 8.9, 05/07 8.3 14% MARYLOU 2+, minimal nodules Trial finasteride [facility] Medical History Osteoarthritis Cerebrovascular accident (CVA) determined by clinical assessment Hypercholesterolemia Essential hypertension Type 2 diabetes mellitus without complications Medicare annual wellness visit, initial Surgical History History of colonoscopy History of hernia repair History of appendectomy Family History Father Medical history unknown Mother Medical history unknown Social History Housing: House Alcohol intake: current Alcohol intake frequency: holidays/special occasions only Patient Tobacco Use Status: Never used Tobacco e-Cigarette/Vaping Use: Never Used Second Hand Smoke Exposure: No service: No Current occupational status: retired Cognitive needs: No Hearing needs: No Vision needs: Yes Review of Systems Const Denies chills and Denies fever(s) Card Reports no additional complaints and Denies syncope Resp Denies cough GI Denies abdominal pain and Denies heartburn Reports as per HPI and Denies change in libido Neuro Denies syncope Psych Denies change in libido Endo Denies change in libido Physical Exam Const General: cooperative, healthy appearing, comfortable and no acute distress Orientation/consciousness: patient oriented x3 HEENT Face and sinus: Yes normal facial exam Mouth: moist mucous membranes Neck Neck: Yes normal visual inspection, Yes full ROM and Yes trachea midline Chest Chest palpation & inspection: normal inspection of the chest Resp Effort & Inspection: normal respiratory effort, able to speak in complete sentences and no respiratory distress GI Inspection: Yes normal to inspection Back/Spine/Pelvis Cervical Spine: normal cervical lordosis Thoracic/Lumbar Spine: thoracic and lumbar spine normal to inspection Skin General skin exam: no rashes or lesions noted Neuro General: patient oriented x3, gait normal, tone normal and moves all extremities Extrem General: Yes normal to inspection and Yes capillary refill normal Assessment & Plan Assessment & Plan (1) Elevated PSA: Code(s): R97.20 - Elevated prostate specific antigen [PSA] Category: Medical Plan Continue finasteride with PSA review Orders: Orders PSA,Total (Free>4and<10) 6 Months R97.20 - Elevated prostate specific antigen [PSA] Patient Instructions: Imaging studies, laboratory and physical exam results were discussed and reviewed in detail. No major barriers to patient understanding were identified. An opportunity to ask questions regarding the treatment plan was provided. All questions were answered. The patient expressed understanding and agreement with the above treatment plan. The patient is aware they should contact our office by phone for worsening of their current condition or the appearance of new urologic symptoms. Compliance is encouraged with any medications and followup testing that is ordered. It is a privilege to participate in the urologic care of your patient. If you have any questions or concerns regarding treatment for the above conditions, or other urologic issues, please do not hesitate to contact me. The office telephone contact is [phone]. This note is constructed using voice recognition software. While every effort has been made to ensure accuracy optimization consultant errors may have been included. Yours sincerely, Dr Sukumar Zhao MD, [facility] - Urology Providers of Expert, Compassionate Care for the Genitourinary System Coding Level of Care Code Est Pt Level 3 (35304) Diagnoses Elevated PSA R97.20
== END 2024-05-08 10:41 | disposition home or self-care (01) ==
LOC: HO.HUSH 09:08
PROVIDERS: PCP Internal Medicine; Visit Provider Urology
DX: R97.20 Elevated prostate specific antigen [PSA] (principal)
CPT/HCPCS: 99213

== ENCOUNTER → 2024-05-08 09:08 | Outpatient (BNVA) | payer MEDICARE, SELFPAY | PROVIDERS: PCP Internal Medicine; Visit Provider Urology | DX: R97.20 Elevated prostate specific antigen [PSA] (principal) | CPT/HCPCS: 99212 ==

== ENCOUNTER 2024-06-07 09:08 | Outpatient (AMB) | payer MEDICARE, SELFPAY ==
--- NOTE | 2024-06-07 09:31 | MHC.PC.OV ---
Vital Signs 06/07/24 09:32 Height 5 ft 10 in Weight 161 lb 2 oz BMI 23.1 BP 130/64 Blood Pressure Location Rt brachial Position Sitting Pulse 85 Pulse Source Pulse Oximeter Pulse Oximetry (%) 98 Oxygen Delivery Method Room Air Intake Visit Reasons: 3mth f/u Intake Note: Patient is here to follow up on HTN, DM, HLD, OA. Truck Sales Representative Required: No Metalworking Instructor: Not Required per policy Accompanied by: Self / Same As Patient Allergies No Known Allergies Allergy (Verified 06/07/24 09:32) Tobacco use date assessed: 06/07/24 Fall risk assessment: No Falls in past year Last assessed Fall Risk: 06/07/24 Dental Screening Dental Screen Date: 02/16/24 HPI 3mth f/u HPI Details 84 yr old male presents to the office for a follow up visit. He admits his diet has been poor recently. Eating a lot of peaches and berries in addition to baked goods. Fasting blood sugar this morning was 167. Patient was started on Finasteride by the urologist. Not tolerating it well, feels bloated after taking the medication. [facility] Medical History Osteoarthritis Cerebrovascular accident (CVA) determined by clinical assessment Hypercholesterolemia Essential hypertension Type 2 diabetes mellitus without complications Medicare annual wellness visit, initial Surgical History History of colonoscopy History of hernia repair History of appendectomy Family History Father Medical history unknown Mother Medical history unknown Social History Housing: House Alcohol intake: current Alcohol intake frequency: holidays/special occasions only Patient Tobacco Use Status: Never used Tobacco e-Cigarette/Vaping Use: Never Used Second Hand Smoke Exposure: No service: No Current occupational status: retired Cognitive needs: No Hearing needs: No Vision needs: Yes Questionnaire Thrive Questionnaire Date Thrive assessed: 02/16/24 LAKEISHA-7 AMB Questionnaire LAKEISHA-7 Date LAKEISHA - 7 assessed: 02/16/24 Source: Developed by Drs. Silvio Montes, Yahaira B.Mauricio Brambila and colleagues, with an educational vinayak from [employer]. Physical exam (Primary Care) Vital Signs: Last Vital Signs Pulse 85 06/07/24 09:32 BP 130/64 06/07/24 09:32 Pulse Ox 98 06/07/24 09:32 Oxygen Delivery Method Room Air 06/07/24 09:32 BMI result Body Mass Index 23.1 Tobacco/Smoking Status: Tobacco use Status Tobacco use date assessed 06/07/24 06/07/24 09:48 Patient Tobacco Use Status Never used Tobacco 06/07/24 09:48 e-Cigarette/Vaping Use Never Used 06/07/24 09:48 Thrive Assessment: Date of Thrive Assessment Date Thrive assessed 02/16/24 06/07/24 09:48 Const General: cooperative and healthy appearing Nutritional Appearance: well nourished Orientation/consciousness: patient oriented x3 Limitations: no limitations HENMT Head: Yes normal to inspection Eyes General: appearance normal, both eyes and all related structures Neck Neck: Yes normal visual inspection Chest Chest palpation & inspection: normal palpation of entire chest wall Resp Effort & Inspection: normal respiratory effort Neuro General: patient oriented x3 Results AMB Hemoglobin A1c AMB Hemoglobin A1c 8.1 % Last Edit by DANA Pacheco on 06/07/24 09:54 Results Reviewed Results Reviewed: Laboratory Last Values Hgb A1c (Clinic) 8.1 % (4.0-6.0) H 06/07/24 09:31 Assessment and Plan Assessment & Plan (1) Cerebrovascular accident (CVA) determined by clinical assessment: Code(s): I63.9 - Cerebral infarction, unspecified Plan: Condition is stable with patient having fixed flexion deformities. (2) Hyperlipidemia: Code(s): E78.5 - Hyperlipidemia, unspecified Plan: Blood work will be ordered. Based on the results statin dosage will be adjusted. (3) Type 2 diabetes mellitus without complications: Code(s): E11.9 - Type 2 diabetes mellitus without complications Plan: A1c is elevated at 8.1 which indicates poor sugar control. Patient was encouraged to eat a judicious diet less than sugar. I have increased his Lantus insulin to 25 units. I wanted the patient to take his short-acting insulin 3 times a day, but patient is declining. (4) Elevated PSA: Code(s): R97.20 - Elevated prostate specific antigen [PSA] Plan: Patient would like to stop the finasteride. Since there is no change in his urinary frequency, I agreed that he could go ahead and stop the medication. Orders: Orders Complete Blood Count no Diff 08/28/24 E11.9 - Type 2 diabetes mellitus without complications, E78.5 - Hyperlipidemia, unspecified, I63.9 - Cerebral infarction, unspecified Liver Panel 08/28/24 E11.9 - Type 2 diabetes mellitus without complications, E78.5 - Hyperlipidemia, unspecified, I63.9 - Cerebral infarction, unspecified Thyroid Stimulating Hormone 08/28/24 E11.9 - Type 2 diabetes mellitus without complications, E78.5 - Hyperlipidemia, unspecified, I63.9 - Cerebral infarction, unspecified AMB Hemoglobin A1c Today E11.9 - Type 2 diabetes mellitus without complications Basic Metabolic Panel 08/28/24 E11.9 - Type 2 diabetes mellitus without complications, E78.5 - Hyperlipidemia, unspecified, I63.9 - Cerebral infarction, unspecified Lipid Panel 08/28/24 E11.9 - Type 2 diabetes mellitus without complications, E78.5 - Hyperlipidemia, unspecified, I63.9 - Cerebral infarction, unspecified UA and rflx microscopic 08/28/24 E11.9 - Type 2 diabetes mellitus without complications, E78.5 - Hyperlipidemia, unspecified, I63.9 - Cerebral infarction, unspecified Microalbumin, Random (w Creat) 08/28/24 E11.9 - Type 2 diabetes mellitus without complications, E78.5 - Hyperlipidemia, unspecified, I63.9 - Cerebral infarction, unspecified Hemoglobin A1c 08/28/24 E11.9 - Type 2 diabetes mellitus without complications, E78.5 - Hyperlipidemia, unspecified, I63.9 - Cerebral infarction, unspecified Medications: Changed From insulin glargine (Lantus Solostar U-100 Insulin) 20 units (0.2 mL) subcut BEDTIME 15 mL 5RF To insulin glargine (Lantus Solostar U-100 Insulin) 25 units (0.25 mL) subcut BEDTIME 15 mL 5RF Discontinued finasteride Discontinued Reason: Doctor's Order 5 mg PO DAILY 90 days 90 tabs 1RF R97.20 - Elevated prostate specific antigen [PSA] Coding Level of Care Code Est Pt Level 4 (59874) Complex EM visit Add On G2211 Diagnoses Cerebrovascular accident (CVA) determined by clinical assessment I63.9 Hyperlipidemia E78.5 Type 2 diabetes mellitus without complications E11.9 Elevated PSA R97.20
[2024-06-07 09:32] VITALS: BP 130/64; PULSE 85; O2SAT 98; BMI 23.1
== END 2024-06-07 10:21 | disposition home or self-care (01) ==
PROVIDERS: PCP Internal Medicine; Visit Provider Internal Medicine
DX: E11.69 Type 2 diabetes mellitus with other specified complication (principal); I69.398 Other sequelae of cerebral infarction; E78.5 Hyperlipidemia, unspecified; R97.20 Elevated prostate specific antigen [PSA]
CPT/HCPCS: 83036; 99214; G2211

== ENCOUNTER 2024-09-27 08:59 | Outpatient (AMB) | payer MEDICARE, SELFPAY ==
--- NOTE | 2024-09-27 09:16 | MHC.PC.OV ---
Vital Signs 09/27/24 09:17 Height 5 ft 10 in Weight 163 lb 4 oz BMI 23.4 BP 140/70 H Blood Pressure Location Rt brachial Position Sitting Pulse 77 Pulse Source Pulse Oximeter Pulse Oximetry (%) 96 Oxygen Delivery Method Room Air Intake Visit Reasons: High BP readings Intake Note: Patient is here to follow up on High BP reading and DM. Electronic Operator Required: No Cardiograph Operator: Not Required per policy Accompanied by: Self / Same As Patient Allergies No Known Allergies Allergy (Verified 09/27/24 09:17) Tobacco use date assessed: 09/27/24 Fall risk assessment: No Falls in past year Last assessed Fall Risk: 09/27/24 Dental Screening Dental Screen Date: 02/16/24 HPI High BP readings HPI Details 84-year-old male presents to the office to discuss his chronic medical conditions. [facility] He gets his blood pressure checked there and for the past 3 weeks, consistently is systolic blood pressure is greater than 150. Reports no symptoms of headache or blurred vision. Able to function and do activities of daily living. Since last office visit, patient has avoided sugars and is eating healthy. [facility] Medical History Osteoarthritis Cerebrovascular accident (CVA) determined by clinical assessment Hypercholesterolemia Essential hypertension Type 2 diabetes mellitus without complications Medicare annual wellness visit, initial Surgical History History of colonoscopy History of hernia repair History of appendectomy Family History Father Medical history unknown Mother Medical history unknown Social History Housing: House Alcohol intake: current Alcohol intake frequency: holidays/special occasions only Patient Tobacco Use Status: Never used Tobacco e-Cigarette/Vaping Use: Never Used Second Hand Smoke Exposure: No service: No Current occupational status: retired Cognitive needs: No Hearing needs: No Vision needs: Yes Questionnaire Thrive Questionnaire Date Thrive assessed: 02/16/24 LAKEISHA-7 AMB Questionnaire LAKEISHA-7 Date LAKEISHA - 7 assessed: 02/16/24 Source: Developed by Drs. Silvio Montes, Yahaira Krause, Mauricio Jenkins and colleagues, with an educational vinayak from [employer] at work. Physical exam (Primary Care) Vital Signs: Last Vital Signs Pulse 77 09/27/24 09:17 BP 140/70 H 09/27/24 09:17 Pulse Ox 96 09/27/24 09:17 Oxygen Delivery Method Room Air 09/27/24 09:17 BMI result Body Mass Index 23.4 Tobacco/Smoking Status: Tobacco use Status Tobacco use date assessed 09/27/24 09/27/24 09:53 Patient Tobacco Use Status Never used Tobacco 09/27/24 09:53 e-Cigarette/Vaping Use Never Used 09/27/24 09:53 Thrive Assessment: Date of Thrive Assessment Date Thrive assessed 02/16/24 09/27/24 09:53 Const General: cooperative and healthy appearing Nutritional Appearance: well nourished Orientation/consciousness: patient oriented x3 Limitations: no limitations HENMT Head: Yes normal to inspection Eyes General: appearance normal, both eyes and all related structures Neck Neck: Yes normal visual inspection Chest Chest palpation & inspection: normal palpation of entire chest wall Resp Effort & Inspection: normal respiratory effort Neuro General: patient oriented x3 Results AMB Hemoglobin A1c AMB Hemoglobin A1c 7.1 % Last Edit by DANA Pacheco on 09/27/24 09:56 Results Reviewed Results Reviewed: Laboratory Last Values Hgb A1c (Clinic) 7.1 % (4.0-6.0) H 09/27/24 09:16 Coding Level of Care Code Est Pt Level 4 (13731) Complex EM visit Add On G2211 Diagnoses Essential hypertension I10 Type 2 diabetes mellitus without complications E11.9 Assessment & Plan Assessment & Plan (1) Essential hypertension: Code(s): I10 - Essential (primary) hypertension Category: Medical Plan: Blood pressure is consistently elevated. Hydrochlorothiazide is added to the regimen. Patient was advised to check the blood pressures at home and at the [facility]. He will be returning to the office in a month for an annual physical, I encouraged him to bring his blood pressure log. (2) Type 2 diabetes mellitus without complications: Code(s): E11.9 - Type 2 diabetes mellitus without complications Category: Medical Plan: A1c has improved. Continue medications at the same dosage. Orders: Orders AMB Hemoglobin A1c Today E11.9 - Type 2 diabetes mellitus without complications Medications: New hydrochlorothiazide 25 mg PO DAILY 90 tabs 1RF
[2024-09-27 09:17] VITALS: BP 140/70; PULSE 77; O2SAT 96; BMI 23.4
== END 2024-09-27 11:41 | disposition home or self-care (01) ==
PROVIDERS: PCP Internal Medicine; Visit Provider Internal Medicine
DX: I10 Essential (primary) hypertension (principal); E11.9 Type 2 diabetes mellitus without complications

== ENCOUNTER → 2024-09-27 08:59 | Outpatient (BNVA) | payer MEDICARE, SELFPAY | PROVIDERS: PCP Internal Medicine; Visit Provider Internal Medicine | DX: I10 Essential (primary) hypertension (principal); E11.9 Type 2 diabetes mellitus without complications | CPT/HCPCS: 83036; 99212 ==

== ENCOUNTER 2024-10-31 07:40 | Outpatient (REF) | payer MEDICARE, SELFPAY ==
[2024-10-31 10:41] LABS: Hemoglobin 11.4 g/dl (14.0-18.0); Mean Corpuscular HGB Conc 32.6 g/dl (31.0-36.0); Mean Corpuscular Hemoglobin 28.7 pg (27.0-33.0); Mean Corpuscular Volume 88.2 fL (80.0-98.0); Platelet Count 336 X10*3/uL (160-400); Red Blood Count 3.97 X10*6/uL (4.60-5.80); Red Cell Distribution Width 13.5 % (11.0-16.0); White Blood Count 6.3 X10*3/uL (4.8-10.8)
[2024-10-31 10:45] LABS: Appearance Urine Clear; Color Urine Yellow; Glucose Urine UA 100 mg/dL (Negative); Leukocyte Esterase Urine Negative (Negative); Nitrite Urine Negative (Negative); PH 5.5 (5.0-9.0); Urine Blood Negative (Negative); Urine Ketones Negative (Negative); Urine Protein Negative (Neg-Trace)
[2024-10-31 10:47] LABS: Estimated Average Glucose 160 mg/dL; Hemoglobin A1C 159.2159 umol/L; Hemoglobin A1c % 7.2 % (<6.0); Total Hemoglobin (HGBA1C) 2882.5933 umol/L
[2024-10-31 11:05] LABS: Anion Gap 10 (12-20); Chloride 104 mmol/L (96-108); Sodium 139 mmol/L (135-145)
[2024-10-31 11:09] LABS: Alanine Aminotransferase 20 U/L (0-40); Alkaline Phosphatase 83 U/L (39-117); Aspartate Amino Transferase 27 U/L (5-37); Bilirubin Direct 0.2 mg/dL (0.0-0.5); Bilirubin Total 0.4 mg/dL (0.0-1.0); Blood Urea Nitrogen 30 mg/dL (9-16); Calcium 9.2 mg/dL (8.4-10.2); Carbon Dioxide 30 mmol/L (22-29); Cholesterol 130 mg/dL (<200); Estimated Glomerular Filt Rate 59; Glucose Random 107 mg/dL (60-115); HDL Cholesterol 47 mg/dL (>40); LDL Cholesterol Calculated 63 mg/dL (<100); Total Protein 7.8 g/dL (6.5-8.0); Triglycerides 101 mg/dL (<150)
[2024-10-31 11:15] LABS: Thyroid Stimulating Hormone 1.67 uIU/mL (0.32-4.0)
[2024-10-31 11:21] LABS: Creatinine Urine 120.79 mg/dL; Microalbum/Creatinine Ratio Ur 9.1 ug/mg cr (<30)
== END 2024-10-31 07:41 | disposition home or self-care (01) ==
LOC: HO.10HDL 07:40
PROVIDERS: Urology; Visit Provider Internal Medicine
DX: Z12.5 Encounter for screening for malignant neoplasm of prostate (principal); I63.9 Cerebral infarction, unspecified; E78.5 Hyperlipidemia, unspecified; E11.9 Type 2 diabetes mellitus without complications; R97.20 Elevated prostate specific antigen [PSA]
CPT/HCPCS: 36415; 80048; 80061; 80076; 81003; 82043; 82570; 83036; 84153; 84443; 85027

== ENCOUNTER 2024-11-08 12:54 | Outpatient (AMB) | payer MEDICARE, SELFPAY ==
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
[2024-11-08 12:57] VITALS: BP 140/72; BMI 22.7
== END 2024-11-08 13:27 | disposition home or self-care (01) ==
PROVIDERS: PCP Internal Medicine; Visit Provider Internal Medicine
DX: I10 Essential (primary) hypertension (principal)

== ENCOUNTER → 2024-11-08 12:54 | Outpatient (BNVA) | payer MEDICARE, SELFPAY | PROVIDERS: PCP Internal Medicine; Visit Provider Internal Medicine | DX: I10 Essential (primary) hypertension (principal); E11.9 Type 2 diabetes mellitus without complications; E78.5 Hyperlipidemia, unspecified | CPT/HCPCS: 96127; 99212 ==

== ENCOUNTER 2025-02-21 08:49 | Outpatient (AMB) | payer MEDICARE, SELFPAY ==
--- OUTSIDE RECORDS SUMMARY | 2025-02-21 09:16 | XMS_ITS | Clinical Summary ---
Author Organization [employer] Address [address] [place] [address] Care Team Providers Care Computing Machine Operator Name Role Phone Unavailable Primary Care Provider Unavailabl e Immunizations Name Administration Dates Next Due Influenza, seasonal, injectable, preservative fr ee 08/23/2024 Pfizer Covid-19 Vaccine 12+ 08/23/2024 Social History Tobacco Use Types Packs/Day Years Used Date Smoking Tobacco: Never Assessed Sex and Gender Information Value Date Recorded Sex Assigned at Male 08/23/2024 2:39 PM EDT Legal Sex Male 1:43 PM EDT Gender Identity Male 08/23/2024 2:39 PM EDT Sexual Orientation Don't know 08/23/2024 2: 39 PM EDT Plan of Treatment Health Maintenance Due Date Last Done Comments Depression Screening 1938 Lipid Panel 1938 SDOH Screening 1938 Alcohol/Substance Use Screening 1950 Tobacco Screening 1950 DTaP/Tdap/Td Vaccines (1 - Tdap) 1957 Pneumococcal Vaccine: 50+ Ye ars (1 of 1 - PCV) 1988 Zoster Vaccines (1 of 2) 1988 RSV Patients and Pa tients Aged 60 years or older (1 - 1-dose 75+ series) 2013 COVID-19 Vaccine Completed 08/23/2024 Influenza Vaccine Completed 08/23/2024 HIB Vaccines Aged Out No longer eligi ble based on patient's age to complete this topic HPV Vaccines Aged Out No longer eligi ble based on patient's age to complete this topic Hepatitis A Vaccines Aged Out No long er eligible based on patient's age to complete this topic Hepatitis B Vaccines Aged Out No long er eligible based on patient's age to complete this topic IPV Vaccines Aged Out No longer eligi ble based on patient's age to complete this topic Meningococcal Vaccine Aged Out No krysta chun eligible based on patient's age to complete this topic RSV under 20 months Aged Out No longe r eligible based on patient's age to complete this topic Rotavirus Vaccines Aged Out No longer eligible based on patient's age to complete this topic Insurance [facility] MEDICARE SUPPLEMENT
--- NOTE | 2025-02-21 09:18 | A.OFFPC_ITS ---
Vital Signs 02/21/25 09:19 Height 5 ft 10 in Weight 162 lb 2 oz BMI 23.3 BP 120/68 Blood Pressure Location Lt brachial Position Sitting Pulse 89 Pulse Source Pulse Oximeter Temp 97.7 F Temp Source Temporal Artery Scan Pulse Oximetry (%) 97 Oxygen Delivery Method Room Air Intake Visit Reasons: 3 Month F/U - see comments Intake Note: Patient is here to follow up on DM, HLD, HTN. Conventional Mortgage Underwriter Required: No Steward/Stewardess Bath: Not Required per policy Accompanied by: Self / Same As Patient Allergies No Known Allergies Allergy (Verified 02/21/25 09:19) Tobacco use date assessed: 02/21/25 Fall risk assessment: No Falls in past year Last assessed Fall Risk: 02/21/25 Dental Screening Dental Screen Date: 02/21/25 Did you have a dental visit in the last 12 months?: Yes Did you have a dental problem in the last 6 months where you did not have access to dental care?: No Was dental information given to patient?: Patient has dentist [facility] Medical History Osteoarthritis Cerebrovascular accident (CVA) determined by clinical assessment Hypercholesterolemia Essential hypertension Type 2 diabetes mellitus without complications Medicare annual wellness visit, initial Surgical History History of colonoscopy History of hernia repair History of appendectomy Family History Father Medical history unknown Mother Medical history unknown Social History Housing: House Alcohol intake: current Alcohol intake frequency: holidays/special occasions only Patient Tobacco Use Status: Never used Tobacco e-Cigarette/Vaping Use: Never Used Second Hand Smoke Exposure: No service: No Current occupational status: retired Cognitive needs: No Hearing needs: No Vision needs: Yes (Glasses) Questionnaire PHQ-9 Over the last 2 weeks, how often have you been bothered by any of the following problems? 1. Little interest or pleasure in doing things: not at all 2. Feeling down, depressed, or hopeless: not at all 3. Trouble falling or staying asleep, or sleeping too much: not at all 4. Feeling tired or having little energy: not at all 5. Poor appetite or overeating: not at all 6. Feeling bad about yourself - or that you are a failure or have let yourself or your family down: not at all 7. Trouble concentrating on things, such as reading the newspaper or watching television: not at all 8. Moving or speaking so slowly that other people could have noticed. Or the opposite - being so fidgety or restless that you have been moving around a lot more than usual: not at all 9. Thoughts that you would be better off or of hurting yourself in some way: not at all Total score: 0 Depression Screening Interpretation: Negative Depression Screening Done: Yes Source: Developed by Drs. Silvio Montes, Mauricio Egan and colleagues, with an educational vinayak from [employer]. Thrive Questionnaire Date Thrive assessed: 02/21/25 Currently or been in a relationship where the following occur: No concerns reported THRIVE Score: 0 AUDIT C Alcohol Use Questionnaire (AUDIT-C) 1. How often do you have a drink containing alcohol?: Never Total Score: 0 LAKEISHA-7 AMB Questionnaire LAKEISHA-7 Date LAKEISHA - 7 assessed: 02/21/25 Feeling nervous, anxious, or on edge: 0 = Not at all Not being able to stop or control worryin = Not at all Worrying too much about different things: 0 = Not at all Trouble relaxin = Not at all Being so restless that it is hard to sit still: 0 = Not at all Becoming easily annoyed or irritable: 0 = Not at all Feeling afraid as if something awful might happen: 0 = Not at all Total LAKEISHA-7 score (0-4 normal; 5-9 mild; 10-14 moderate; 15-21 severe): 0 Source: Developed by Drs. Silvio Montes, Mauricio Egan and colleagues, with an educational vinayak from [employer]. Physical exam (Primary Care) Vital Signs: Last Vital Signs Temp 97.7 F 02/21/25 09:19 Pulse 89 02/21/25 09:19 BP 120/68 02/21/25 09:19 Pulse Ox 97 02/21/25 09:19 Oxygen Delivery Method Room Air 02/21/25 09:19 Care Plan Goal for BP management: Blood pressure is in range. BMI result Body Mass Index 23.3 Tobacco/Smoking Status: Tobacco use Status Tobacco use date assessed 02/21/25 02/21/25 09:29 Patient Tobacco Use Status Never used Tobacco 02/21/25 09:29 e-Cigarette/Vaping Use Never Used 02/21/25 09:29 PHQ-9: PHQ-9 Score PHQ-9: Total score 0 02/21/25 09:29 Depression Screening Interpretation: Negative Thrive Assessment: Date of Thrive Assessment Date Thrive assessed 02/21/25 02/21/25 09:29 Currently or been in a relationship where the following occur: No concerns reported Advance Care Planning discussion: Exists, not on file Date of discussion: 02/21/25 Forms completed: Health Care Proxy and MOLST Time spent: 1-15 minutes, on File Actual minutes spent: 5 Results AMB Hemoglobin A1c AMB Hemoglobin A1c 6.9 % Last Edit by DANA Pacheco on 02/21/25 09:35 Results Reviewed Results Reviewed: Laboratory Last Values Hgb A1c (Clinic) 6.9 % (4.0-6.0) H 02/21/25 09:17 Coding Level of Care Code Est Pt Level 4 (33310) Complex EM visit Add On G2211 Diagnoses Essential hypertension I10 Type 2 diabetes mellitus without complications E11.9 Additional Codes Vital Signs *Quality* - Advance Care Planning discussion: Exists, not on file ([id number]) Vital Signs *Quality* - Time spent: 1-15 minutes, on File ([id number]) Assessment & Plan Assessment & Plan (1) Essential hypertension: Code(s): I10 - Essential (primary) hypertension Category: Medical Plan: Blood pressure is in range. Continue current medications. (2) Type 2 diabetes mellitus without complications: Code(s): E11.9 - Type 2 diabetes mellitus without complications Category: Medical Plan: A1c is in range. Continue insulin at same dosage. Plan History of Present Illness The patient is an 84-year-old male presenting with gastroesophageal reflux disease. The patient describes experiencing heartburn, associated with consumption of certain foods such as pastries and milk. The symptoms are described as a form of reflux and suggest a dietary component as a trigger. The patient expresses curiosity about possible medication interventions but has not yet pursued treatment. Additionally, his diabetes management appears sa tisfactory, with a self-reported blood glucose level of 6.8, falling within acceptable limits for control. Social History - Diet: Reports enjoying a variety of foods, including pastries. Indicates a relaxed approach to dietary choices and weight management. - Physical Activity: Describes staying active, suggesting an ongoing involvement in typical daily activities. - Language and Culture: Background or interactions related to [place], though specifics on use or implication are not detailed. Review of Systems - Gastrointestinal: Reports heartburn symptoms - Endocrinology: Reports stable blood glucose readings - General: Denies any restrictions or limitations in typical daily activities Physical Exam General: Cooperative and healthy appearing Nutritional Appearance: Well nourished Orientation/consciousness: Patient oriented x3 Limitations: No limitations Head: Normal to inspection General: Appearance normal, both eyes and all related structures Neck: Normal visual inspection Chest: Normal palpation of entire chest wall Respiratory: Everything looks good. ormal respiratory effort Neurology: Patient oriented x3 Results - Lab: Reports blood glucose level of 6.8 Plan 1. 8, requiring no immediate changes. We discussed possible medication options for GERD, should conservative measures prove insufficient, to be evaluated at a later appointment. Our current plan includes maintaining regular health monitoring and reviewing progress in six months.: Patient was informed and verbally consented to the use of an ambient scribe for clinic note documentation during this visit. Discussion Notes I conversed with the patient about his gastroesophageal reflux disease symptoms and how certain foods might exacerbate them. We discussed dietary modifications and the possibility of using pharmacotherapy if needed. The patient is well- informed about the stability of his diabetes management, acknowledging his current blood glucose level as satisfactory. I agreed to reassess both conditions and consider treatment adjustments during the next visit scheduled in six months, ensuring comprehensive follow-up and monitoring of his symptoms and overall health status. Patient Instructions - Consider dietary adjustments to reduce gastroesophageal reflux symptoms, avoiding known trigger foods. - Maintain current diabetes management practices, continuing regular monitoring of glucose levels. - Monitor reflux symptoms and report any increase in frequency or severity. - Return for follow-up in six months. - Contact the office should any new symptoms arise or if current symptoms worsen significantly. Orders: Orders AMB Hemoglobin A1c Today E11.9 - Type 2 diabetes mellitus without complications
[2025-02-21 09:19] VITALS: BP 120/68; PULSE 89; TEMP 36.5; O2SAT 97; BMI 23.3
== END 2025-02-21 10:04 | disposition home or self-care (01) ==
LOC: HO.HMCH 08:49
PROVIDERS: PCP Internal Medicine; Visit Provider Internal Medicine
DX: I10 Essential (primary) hypertension (principal); E11.9 Type 2 diabetes mellitus without complications; Z00.00 Encounter for general adult medical examination without abnormal findings

== ENCOUNTER → 2025-02-21 08:49 | Outpatient (BNVA) | payer MEDICARE, SELFPAY | PROVIDERS: PCP Internal Medicine; Visit Provider Internal Medicine | DX: I10 Essential (primary) hypertension (principal); E11.9 Type 2 diabetes mellitus without complications | CPT/HCPCS: 83036; 99212 ==

== ENCOUNTER 2025-05-09 12:36 | Observation (INO) | payer MEDICARE, SELFPAY ==
[2025-05-09] VITALS (10 sets, daily range): BP systolic 101–156; BP diastolic 50–75; PULSE 72–92; RESP 15–19; TEMP 36.1–37.1; O2SAT 96–100; BMI 23.1; BMI 23.2
--- NOTE | ~2025-05-09 | XR_ITS ---
EXAMINATION: XR CHEST CLINICAL INFORMATION: chest pain COMPARISON: None available. TECHNIQUE: Frontal view of the chest was obtained. FINDINGS: No significant abnormality is noted involving the heart, lungs, mediastinum, bony thorax or soft tissues. Moderate right AC joint arthropathy is present. XR/XR chest 1V IMPRESSION: No acute disease. Electronically signed by: Jeffery Gonsalves MD 05/09/2025 02:00 PM EDT
--- NOTE | 2025-05-09 12:38 | ECG_ITS ---
Test Reason : chest pain Blood Pressure : */* mmHG Vent. Rate : 91 BPM Atrial Rate : 91 BPM P-R Int : 200 ms QRS Dur : 84 ms QT Int : 342 ms P-R-T Axes : 61 23 80 degrees QTcB Int : 420 ms Sinus rhythm with marked sinus arrhythmia Otherwise normal ECG When compared with ECG of 06-Mar-2019 10:23, No significant change was found Referred By: Generic ED Physician Electronically Signed By: TIGRE CARTER
--- NOTE | 2025-05-09 12:56 | ED_ITS ---
HPI - General Adult General Chief complaint: Allergic Reaction Stated complaint: CP, swelling and rash on body Time Seen by Provider: 05/09/25 13:03 Source: patient Mode of arrival: ambulatory Limitations: no limitations History of Present Illness ED Provider: DR. Sebastian HPI narrative: 85-year-old male history of hypertension on lisinopril, high cholesterol, DM, CVA patient stated he was stung by wasp in the left side of his face this morning at 08:00 started to notice rash and itching then gradually started have tongue swelling, patient is been having difficulty swallowing food because the swelling, then started to have some voice change in lip swelling because patient did not feel any improvement decided to come to the hospital for further evaluation. Patient felt chest pain earlier that lasted for few sec without radiation. Related Data Home Medications ?Medication ?Instructions ?Recorded ?Confirmed aspirin 81 mg tablet,delayed 81 mg PO DAILY 11/17/23 0 05/08/24 release (Adult Aspirin Regimen) Previous Rx's ?Medication ?Instructions ?Recorded pen needle, diabetic 31 gauge x 1 ea miscellaneous MASON LY for 07/31/2103/29 (BD Ultra-Fine Short Pen diabetes mellitus #90 c aps Needle) ferrous sulfate 325 mg (65 mg 325 mg PO DAILY #30 tabs 02/25/23 iron) tablet (Feosol) blood sugar diagnostic (FreeStyle 1 strip miscellaneou s BID #200 10/25/23 Lite Strips) strips insulin lispro 200 unit/mL (3 mL) 10 unit (0.05 mL) gonzales bcut TID #6 mL 05/24/24 subcutaneous pen (Humalog KwikPen U-200 Insulin) insulin glargine 100 unit/mL (3 25 unit (0.25 mL) subc ut BEDTIME 06/07/24 mL) subcutaneous pen (Lantus #15 mL Solostar U-100 Insulin) lisinopril 20 mg tablet 20 mg PO DAILY #90 tabs 02/12 07/08 simvastatin 20 mg tablet 20 mg PO BEDTIME #90 tabs hydrochlorothiazide 25 mg tablet 25 mg PO DAILY #90 ta bs 03/21/25 metformin 1,000 mg tablet 1,000 mg PO BID #180 tabs Allergies Allergy/AdvReac Type Severity Reaction Status Date / Time No Known Allergies Allergy Verified 05/09/25 12:58 Review of Systems 2 Review of Systems: All other systems are reviewed and are negative Constitutional: Reports as per HPI and Reports no additional constitutional complaints Eyes: Reports as per HPI and Reports no additional eye complaints Reports system reviewed and no additional complaints, except as documented Cardiovascular: Reports as per HPI and Reports no additional cardiovascular complaints Respiratory: Reports as per HPI and Reports no additional respiratory complaints Gastrointestinal: Reports as per HPI and Reports no additional gastrointestinal complaints Genitourinary: Reports no additional female genitourinary complaints Musculoskeletal: Reports no additional musculoskeletal complaints Skin/Breast: Reports system reviewed and no additional complaints, except as docu Psychiatric: Reports no additional psychiatric complaints Endocrine: Reports no additional endocrine complaints Hematologic/Lymphatic: Reports no additional hematologic/lymphatic complaints Allergic/Immunologic: Reports no additional allergic/immunologic complaints Reports system reviewed and no additional complaints, except as documented and Reports Abnormal speech present FOR[facility]LY [facility] Past Medical History Medical History Osteoarthritis Cerebrovascular accident (CVA) determined by clinical assessment Hypercholesterolemia Essential hypertension Type 2 diabetes mellitus without complications Medicare annual wellness visit, initial Surgical History History of colonoscopy History of hernia repair History of appendectomy Family History Family History Father Medical history unknown Mother Medical history unknown Social History Social History Housing: House Alcohol intake: current Alcohol intake frequency: holidays/special occasions only Patient Tobacco Use Status: Never used Tobacco Smoked in Last 30 Days: No e-Cigarette/Vaping Use: Never Used Second Hand Smoke Exposure: No Use of substances other than those prescribed or required for medical reasons: No Advance Directives: No Advance Directives Information Provided: Yes Do you have a plan to hurt others: No Plan service: No Current occupational status: retired Cognitive needs: No Hearing needs: No Vision needs: Yes (Glasses) Physical Exam ED Vital Signs: Vital Signs - 24 hr 05/09/25 12:57 05/09/25 13:12 05/09/25 13:25 Temperature 97 F 97.7 F Pulse Rate 82 92 90 Respiratory Rate 18 16 Blood Pressure 125/63 151/66 H 156/66 H Pulse Oximetry 98 98 Oxygen Delivery Method Room Air Room Air 05/09/25 14:00 05/09/25 15:19 Temperature 98.5 F 98.2 F Pulse Rate 84 84 Respiratory Rate 15 19 Blood Pressure 134/50 L Pulse Oximetry 99 131 H Oxygen Delivery Method Room Air Room Air BMI result Body Mass Index 23.1 Vital signs have been reviewed and appear to be correct. Blood pressure elevated. Heart rate normal. Respiratory rate normal. Temperature normal. Oxygen saturation normal. Appearance: Alert. Oriented X3. No acute distress. Head: Normal external exam. Normocephalic. Atraumatic. No Conrad signs noted. No raccoon eyes noted. Tongue is swollen, uvula is midline, no stridor, Eyes: PERRLA. EOMI. Conjunctiva and sclera normal. Eyelids normal. ENT: TM's Normal. Pharynx normal. Uvula midline. Moist mucous membranes. No trismus noted. No drooling noted. No muffled voice noted. Neck: Normal inspection. Neck supple. FROM. No adenopathy. Thyroid Normal. No meningeal signs. No neck mass noted. CVS: Normal heart rate and rhythm. Heart sound normal. No murmurs noted. Pulses normal throughout. Respiratory: No respiratory distress. Painless inspiration. Breath sounds normal. No wheezes/rales/rhonchi noted. Chest nontender. No accessory muscle usage noted or decreased air movement noted. Abdomen: Soft and nontender. Bowel sounds normal in all 4 quadrants. No distention noted. No organomegaly noted. No visible injury noted. Back: No CVA tenderness. Full range of motion noted. Skin: diffuse hives on the torso and extremity. Extremities: No lower extremity edema. Extremities exhibit normal range of motion. Extremities nontender. Neuro: Oriented X 3. Cranial nerve exam: II-XII are grossly intact No motor deficit. No sensory deficit. Reflexes normal. Course Course Course Narrative: This is an RME: Additional HPI, ROS, PE not included below will be deferred to primary provider. RME assessment and note performed by: Odette Noble PA-C This is a [id number]-male, with a hx of CVA, HTN, hypercholesterolemia, DM, who presents to the ER with complaints of mouth swelling s/p being stung by a wasp this AM. Plan: pt to be brought back [facility] Reevaluation(s) Reevaluation #1: anaphylaxis secondary to was sting received Solu-Medrol, Pepcid, Benadryl, IV fluids still tongue and lip swelling, change voice, unable to swallow saliva. Patient was given subcu epinephrine. Time: 14:00 Reevaluation #2: Patient symptoms significantly improved, able to speak better, less swelling of the tongue and lips, able now to swallow. Admitting the patient for monitoring after epinephrine. Patient was complaining of chest pain negative troponin, no chest pain now, EKG showed no ST-elevation. Time: 16:08 Medications Administered Discontinued Medications Generic Name Dose Route Start Last Admin Trade Name Freq PRN Reason Stop Dose Admin Epinephrine 0.3 mg 05/09/25 13:11 05/09/25 13:12 Epinephrine 1 Mg/Ml Vial SUBCUT 05/09/25 13:12 0.3 mg STAT STA Administration Famotidine 20 mg 05/09/25 13:04 05/09/25 13:17 Famotidine/Pf 20 Mg/2 Ml Vial IVPUSH 05/09/25 13:05 Not Given ONCE ONE Methylprednisolone Sodium Succinate 125 mg 05/09/25 13:04 05/09/25 13:17 Methylprednisolone Sod Succ 125 Mg Vial IVPUSH 05/09/25 13:05 Not Given ONCE ONE Medical Decision Making Differential Diagnosis Differential Diagnoses: The differential diagnosis associated with the presentation includes ( Anaphylaxis, ACS, pneumonia, pneumothorax, pleural effusion, electrolyte derangement, severe anemia, allergic reaction, compromise airway.) Admission/Observation Consideration of admission/observation: Escalation of care including admission/observation considered Consult Healthcare Provider Management of the patient was discussed with: Hospitalist ( Dr. Bell) Lab Data MDM Lab Attestation statement: I reviewed the patient's lab results. 05/09/25 14:07 05/09/25 14:07 Labs: Lab Results 05/09/25 Range/Units 14:07 WBC 15.6 H (4.8-10.8) X10*3/uL RBC 4.03 L (4.60-5.80) X10*6/uL Hgb 12.4 L (14.0-18.0) g/dl Hct 36.2 L (42.0-52.0) % MCV 89.8 (80.0-98.0) fL MCH 30.8 (27.0-33.0) pg MCHC 34.3 (31.0-36.0) g/dl RDW 12.7 (11.0-16.0) % Plt Count 316 (160-400) X10*3/uL MPV 10.2 (9.4-12.4) fL Immature Gran % (Auto) 0.3 (0.0-0.4) % Neut % (Auto) 72.9 (45-73) % Lymph % (Auto) 20.2 (20-40) % Castro % (Auto) 6.4 (2-11) % Eos % (Auto) 0.1 (0-4) % Baso % (Auto) 0.1 (0-2) % Lymph # (Auto) 3.2 (1.2-4.9) X10*3/uL Castro # (Auto) 1.0 (0.1-1.2) X10*3/uL Eos # (Auto) 0.0 (0.0-0.4) X10*3/uL Baso # (Auto) 0.0 (0.0-0.2) X10*3/uL Abs Immat Gran (auto) 0.04 H (0.00-0.03) X10*3/uL Absolute Neuts (auto) 11.4 H (2.0-8.3) x10*3/uL Absolute Nucleated RBC 0.000 (0.0-0.012) X10*3/uL Nucleated RBC % (auto) 0.0 (0.0-0.2) /100WBC Sodium 138 (135-145) mmol/L Potassium 5.0 D (3.3-5.1) mmol/L Chloride 105 (96-108) mmol/L Carbon Dioxide 23 (22-29) mmol/L Anion Gap 15 (12-20) BUN 36 H (9-16) mg/dL Creatinine 1.62 H (0.5-1.4) mg/dL Estim Creat Clear Calc 33.1 Estimated GFR 41 Random Glucose 269 H (60-115) mg/dL Calcium 9.5 (8.4-10.2) mg/dL Troponin I High Sens 3.7 (<3.5-35.0) ng/L B-Natriuretic Peptide 65 (<100) pg/mL Independent Interpretation I performed an independent interpretation of an: EKG ( Normal sinus rhythm at 90 beats per minutes, left axis deviation, normal intervals, no ST-T changes, no significant change from previous EKG.) and Plain X-Ray ( chest: No acute disease.) Radiology Impression Discussion of test interpretation with radiology: I have reviewed the radiologist's reading. Critical Care Time Critical Care Time Critical Care Time: Yes Total Critical Care Time: 60 Attestation: The patient was critically ill with a high probability of imminent or life- threatening deterioration. I spent greater than 30 minutes of discontinuous time evaluating the patient, delivering critical care at the bedside, discussing evaluating data with consultants. Critical care time does not include time spent performing separately billable procedures or teaching. Time spent performing critical care was 60 minutes. Discharge Plan Discharge Clinical Impression: Anaphylaxis, Wasp sting Patient Disposition: Admitted As Inpatient Print Language: Brazilian
--- NOTE | 2025-05-09 13:04 | ECG_ITS ---
Test Reason : allergic reaction Blood Pressure : */* mmHG Vent. Rate : 90 BPM Atrial Rate : 90 BPM P-R Int : 200 ms QRS Dur : 80 ms QT Int : 360 ms P-R-T Axes : 37 15 85 degrees QTcB Int : 440 ms Normal sinus rhythm Otherwise normal ECG When compared with ECG of 09-May-2025 12:39, Premature supraventricular complexes are now Present Referred By: Rhonda Sebastian Electronically Signed By: TIGRE CARTER
--- NOTE | 2025-05-09 13:10 | PC.NURSE ---
pt is alert and oriented, comes in the ed because of rash/hives on the torsal and upper extremities, tounge very swollen but pt is still able to handle secretions unable to visualize the airway at this time without using a tongue depressor, ls diminished, pt is difficult to understand when speaking do to the tongue swelling, pt states he got stung by hives/bees/bugs this morning, having some tongue pain, pt has hx of cva with left sided deficit and facial droop
[2025-05-09] MEDS: EPINEPHrine 1 MG/ML VIAL 0.3 MG SUBCUT (13:12)
--- NOTE | 2025-05-09 13:28 | PC.NURSE ---
85 M presents to ED with tongue swelling and facial swelling, rash on torso following bug bites this morning. Tongue was very swollen upon arrival, hard to understand patient. RR even and unlabored, denies SOB and airway clear. Pt medicated for anaphylaxis. Pt c/o 06/23 tongue pain, no other complaints.
[2025-05-09 14:14] LABS: MANUAL DIFF FLAG NO
[2025-05-09 14:16] LABS: Basophils Percent Auto 0.1 % (0-2); Eosinophils Percent Auto 0.1 % (0-4); Hematocrit 36.2 % (42.0-52.0); Hemoglobin 12.4 g/dl (14.0-18.0); Imm Gran Abs Auto 0.04 X10*3/uL (0.00-0.03); Imm Gran Pct Auto 0.3 % (0.0-0.4); Lymphocytes Absolute Auto 3.2 X10*3/uL (1.2-4.9); Lymphocytes Percent Auto 20.2 % (20-40); Mean Corpuscular HGB Conc 34.3 g/dl (31.0-36.0); Mean Corpuscular Hemoglobin 30.8 pg (27.0-33.0); Mean Corpuscular Volume 89.8 fL (80.0-98.0); Mean Platelet Volume 10.2 fL (9.4-12.4); Monocytes Percent Auto 6.4 % (2-11); Neutrophils Absolute Auto 11.4 x10*3/uL (2.0-8.3); Neutrophils Percent Auto 72.9 % (45-73); Platelet Count 316 X10*3/uL (160-400); Red Blood Count 4.03 X10*6/uL (4.60-5.80); Red Cell Distribution Width 12.7 % (11.0-16.0); White Blood Count 15.6 X10*3/uL (4.8-10.8)
--- NOTE | 2025-05-09 14:17 | PC.NURSE ---
pt reports feeling better, tongue swelling improving, rash and swelling to the face also getting better
[2025-05-09 14:30] LABS: Anion Gap 15 (12-20); Blood Urea Nitrogen 36 mg/dL (9-16); Calcium 9.5 mg/dL (8.4-10.2); Carbon Dioxide 23 mmol/L (22-29); Chloride 105 mmol/L (96-108); Creatinine Clr Calc Pharmacy 33.1; Estimated Glomerular Filt Rate 41; Glucose Random 269 mg/dL (60-115); Sodium 138 mmol/L (135-145)
[2025-05-09 14:37] LABS: B Type Natriuretic Peptide 65 pg/mL (<100); Troponin-I High Sensitivity 3.7 ng/L (<3.5-35.0)
--- OUTSIDE RECORDS SUMMARY | 2025-05-09 16:27 | XMS_ITS | Patient Health Record ---
Author Organization [facility] Address [address] [place] [address] Care Team Providers [employer] Salesperson Name Role Phone Silvio Barrios [phone] Reason For Referral No Information Plan Of Treatment No Information
--- NOTE | 2025-05-09 17:00 | PC.NURSE ---
Pharmacy called regarding Loratadine medication ordered for this morning, just now ordered and for earlier this morning. Pharmacy also informed pt recieved pepcid IV today, Pepcid dose rescheduled for tomorrow. Pharmacy stated they would re-order for tomorrow.
--- NOTE | 2025-05-09 18:54 | P.HPHOSP_ITS ---
History of Present Illness Date of Service: 05/09/25 Attending physician on admission: Umair Bell Chief Complaint: angioedema 85y/o M pmhx hypertension on lisinopril, high cholesterol, DM, CVA patient stated he was stung by wasp in the left side of his face this morning-then devloped notice rash and itching then gradually started have tongue swelling, patient is been having difficulty swallowing food because the swelling, then started to have some voice change in lip swelling because patient did not feel any improvement decided to come to ED. Patient denied any shortness of breath or chest pain or nausea vomiting or headache or abdominal pain or any new weakness or numbness. Chest x-ray negative, WBC count 15.6, SOFIA creatinine of 1.62. EKG NSR. patient received epinephrine, famotidine, IV Solu-Medrol: Patient's symptoms is to improved significantly but still has facial swelling and minimal lung tongue swelling: Emergency room requested admission for concern for 85-year-old male history of hypertension on lisinopril, high cholesterol, DM, CVA patient stated he was stung by wasp in the left side of his face this morning at 08:00 started to notice rash and itching then gradually started have tongue swelling, patient is been having difficulty swallowing food because the swelling, then started to have some voice change in lip swelling because patient did not feel any improvement decided to come to the hospital for further evaluation. Patient felt chest pain earlier that lasted for few sec without radiation.. Review of Systems 2 Review of Systems: As above. Yes all other systems are reviewed and are negative [facility] Medical History Osteoarthritis Cerebrovascular accident (CVA) determined by clinical assessment Hypercholesterolemia Essential hypertension Type 2 diabetes mellitus without complications Medicare annual wellness visit, initial Family History Father Medical history unknown Mother Medical history unknown Surgical History History of colonoscopy History of hernia repair History of appendectomy Social History Housing: House Alcohol intake: current Alcohol intake frequency: holidays/special occasions only Patient Tobacco Use Status: Never used Tobacco Smoked in Last 30 Days: No e-Cigarette/Vaping Use: Never Used Second Hand Smoke Exposure: No Use of substances other than those prescribed or required for medical reasons: No Advance Directives: No Advance Directives Information Provided: Yes Do you have a plan to hurt others: No Plan service: No Current occupational status: retired Cognitive needs: No Hearing needs: No Vision needs: Yes (Glasses) Meds Allergies Allergy/AdvReac Type Severity Reaction Status Date / Time No Known Allergies Allergy Verified 05/09/25 12:58 Active Medications: Current Medications Acetaminophen (Acetaminophen 325 Mg Tablet) 650 mg PO Q6H PRN PRN Reason: Pain, Mild 1-3,fever,headache Calcium Carbonate (Calcium Carbonate 750 Mg Tab.Chew) 750 mg PO Q4H PRN PRN Reason: Heartburn Famotidine (Famotidine 20 Mg Tablet) 20 mg PO DAILY PRABHU Loratadine (Loratadine 10 Mg Tablet) 10 mg PO DAILY PRABHU Magnesium Hydroxide (Milk Of Magnesia 30 Ml Oral.Susp) 30 ml PO DAILY PRN PRN Reason: Constipation Melatonin (Melatonin 3 Mg Tablet) 6 mg PO BEDTIME PRN PRN Reason: Insomnia Methylprednisolone Sodium Succinate (Methylprednisolone Sod Succ 40 Mg Vial) 40 mg IVPUSH BID PRABHU Sodium Chloride (0.9 % Sodium Chloride Flush 3 Ml Syringe) 3 ml IVFLUSH QSHIFT PRABHU Home Medications ?Medication ?Instructions ?Recorded ?Confirmed ?Last Taken ?Type aspirin 81 mg tablet,delayed 81 mg PO DAILY 11/17/23 0 05/08/24 Unknown History release (Adult Aspirin Regimen) Physical Exam 2 Vital Signs and Narrative: Vital Signs: Last Vital Signs Temp 98.2 F 05/09/25 18:00 Pulse 88 05/09/25 18:00 Resp 18 05/09/25 18:00 BP 130/70 05/09/25 18:00 Pulse Ox 100 05/09/25 18:00 O2 Del Method Room Air 05/09/25 18:00 BMI result Body Mass Index 23.1 Appearance: Alert.? Oriented X3.? mouth:Moist mucous membranes,mild tongue swellin facial swellin also improving cvs: rrr, [id number] . res: clear to auscultation ,no rhonchii or wheezing abd: no rebound or guarding ,nt, bs present. ext pulses present , no cyanosis . neuro: axo3 , nonfocal. Results Labs 05/09/25 14:07 05/09/25 14:07 Labs: Laboratory Results - last 24 hr 05/09/25 14:07 MCV 89.8 MCH 30.8 MCHC 34.3 RDW 12.7 Plt Count 316 MPV 10.2 Immature Gran % (Auto) 0.3 Neut % (Auto) 72.9 Lymph % (Auto) 20.2 Forrest % (Auto) 6.4 Eos % (Auto) 0.1 Baso % (Auto) 0.1 Lymph # (Auto) 3.2 Forrest # (Auto) 1.0 Eos # (Auto) 0.0 Baso # (Auto) 0.0 Abs Immat Gran (auto) 0.04 H Absolute Neuts (auto) 11.4 H Absolute Nucleated RBC 0.000 Nucleated RBC % (auto) 0.0 Anion Gap 15 Estim Creat Clear Calc 33.1 Estimated GFR 41 Random Glucose 269 H Calcium 9.5 Troponin I High Sens 3.7 B-Natriuretic Peptide 65 Imaging Radiologist's Impressions: Impressions Chest X-Ray 05/09/25 12:45 IMPRESSION: No acute disease. Electronically signed by: Jeffery Gonsalves MD 05/09/2025 02:00 PM EDT RP Assessment and Plan (1) Anaphylaxis: Qualifiers: Encounter type: initial encounter Qualified Code(s): T78.2XXA - Anaphylactic shock, unspecified, initial encounter Status: Acute Plan 85-year-old male history of hypertension on lisinopril, high cholesterol, DM, CVA patient stated he was stung by wasp in the left side of his face this morning at 08:00 started to notice rash and itching then gradually started have tongue swelling, patient is been having difficulty swallowing food because the swelling, then started to have some voice change in lip swelling because patient did not feel any improvement decided to come to the hospital for further evaluation. Patient felt chest pain earlier that lasted for few sec without radiation. Allergic reaction to wasp sting: Continue IV steroids, famotidine, loratadine SOFIA: IV hydration, monitor renal function electrolyte closely, hold lisinopril, hydrochlorothiazide and metformin for now Diabetes: Fingerstick with sliding scale coverage Htn: Closely monitor blood pressure Hold lisinopril and hydrochlorothiazide, may use small dose amlodipine if needed. hlp: hold statin for today -has sofia. dvt prophylac: s/cheparin Patient will benefit from 2 midnight inpatient stay for SOFIA and allergic reaction to wasp sting-need renal function electrolyte monitoring as well as monitor blood pressure closely, also need close monitoring for neurologic symptoms. Above management discussed with the patient detail length he understand and in agreement with the above plan, time spent 70 minute, patient full code. Quality Stroke Does the patient have a stroke diagnosis?: No VTE Prior VTE?: No VTE Risk Level:: Medical - moderate - high VTE Device Contraindication: N/A - Device Ordered VTE Drug Contraindication: N/A - Med Ordered
--- NOTE | 2025-05-09 19:08 | PHA.MEDREC ---
Addendum entered by Christiano Gaxiola [facility] 05/09/25 19:21: med rec checked by [facility] Original Note: Pharmacy Consult ? Medication Reconciliation Pharmacy has completed the medication reconciliation. Spoke with pt and he was able to confirm all of his medications with me. Pt confirmed he is taking a Coq10 tablet once a day but did not remember the dose of that medication. Pt confirmed his Lantus and confirmed he takes 20 units at bedtime. Pt stated he is taking his Humalong injecting 10 units after he eats breakfast and claims that is the only time he injects it and he does not test it TIDAC.
[2025-05-09] MEDS: Lactated Ringers 1,000 ML 100 ML IVCONT (19:30)
[2025-05-09] MEDS: Heparin Sodium,Porcine 5,000 UNIT/ML VIAL 5000 UNIT SUBCUT (19:31)
[2025-05-09 21:02] LABS: Glucose, Whole Blood 391 mg/dL (60-115)
[2025-05-09] MEDS: methylPREDNISolone Sod Succ 40 MG VIAL IVPUSH (21:22)
[2025-05-09] MEDS: Insulin Lispro 100 UNIT/ML 3 ML VIAL SUBCUT (21:23)
[2025-05-10 03:18] VITALS: BP 117/56; PULSE 71; RESP 18; TEMP 36.4; O2SAT 98
--- NOTE | 2025-05-10 03:42 | PC.NURSE ---
Pt seen on bed alert and oriented, Bedtime BCL=751, Dr. Samuel was made aware, Lispro 10 units SC given, snacks tolerated.
[2025-05-10] MEDS: Lactated Ringers 1,000 ML 100 ML IVCONT ×2 (04:50→16:30)
[2025-05-10 06:09] LABS: Anion Gap 15 (12-20); Blood Urea Nitrogen 37 mg/dL (9-16); Calcium 8.8 mg/dL (8.4-10.2); Carbon Dioxide 21 mmol/L (22-29); Chloride 106 mmol/L (96-108); Creatinine Clr Calc Pharmacy 37.3; Estimated Glomerular Filt Rate 46; Glucose Random 283 mg/dL (60-115); Potassium 4.6 mmol/L (3.3-5.1); Sodium 137 mmol/L (135-145)
[2025-05-10 06:20] LABS: Hematocrit 29.2 % (42.0-52.0); Hemoglobin 9.9 g/dl (14.0-18.0); Mean Corpuscular HGB Conc 33.9 g/dl (31.0-36.0); Mean Corpuscular Hemoglobin 30.3 pg (27.0-33.0); Mean Corpuscular Volume 89.3 fL (80.0-98.0); Platelet Count 243 X10*3/uL (160-400); Red Blood Count 3.27 X10*6/uL (4.60-5.80); Red Cell Distribution Width 12.7 % (11.0-16.0)
[2025-05-10 07:13] LABS: Glucose, Whole Blood 228 mg/dL (60-115)
[2025-05-10] MEDS: Loratadine 10 MG TABLET PO (07:41)
[2025-05-10] MEDS: Heparin Sodium,Porcine 5,000 UNIT/ML VIAL 5000 UNIT SUBCUT ×2 (07:41→20:14)
[2025-05-10] MEDS: methylPREDNISolone Sod Succ 40 MG VIAL IVPUSH (07:41)
[2025-05-10] MEDS: Insulin Lispro 100 UNIT/ML 3 ML VIAL SUBCUT ×5 (07:42→21:05)
[2025-05-10] MEDS: 0.9 % Sodium Chloride Flush 3 ML SYRINGE IVFLUSH (07:42)
[2025-05-10] MEDS: Famotidine 20 MG TABLET PO (07:42)
[2025-05-10 07:59] VITALS: BP 125/58; PULSE 73; RESP 18; TEMP 37.1; O2SAT 96
--- NOTE | 2025-05-10 10:39 | MHC.CM.PN ---
Addendum entered by Buffy Bennett 05/10/25 14:32: HAS CX DC , CM WILL CONTINUE TO FOLLOW. Addendum entered by Buffy Bennett 05/10/25 11:10: DP: PT HAS BEEN MEDICALLY CLEARED FOR DC HOME, NO SERVICES. WILL TRANSPORT Original Note: [facility] DELIVERED PT LIVES WITH SPOUSE AND IS FUNCTIONALLY INDEPENDENT, USES [facility]. NO SERVICES. + HCP PCP DR. LIMON AT [facility] DP: HOME, NO SERVICES IS ANTICIPATED. PT'S SPOUSE WILL TRANSPORT. CM WILL CONTINUE TO FOLLOW FOR ANY CHANGE TO DC PLAN/NEEDS.
--- NOTE | 2025-05-10 11:09 | P.DS_ITS ---
DS: Providers Provider Date of Service: 05/10/25 Date of admission: 05/09/25 16:12 Date of discharge: 05/10/25 Primary care physician: Garfield Gongora MD Attending physician on discharge: Umair Bell Discharging clinician: Umair Bell DS: Diagnosis Discharge Diagnosis (1) Anaphylaxis: Status: Acute DS: Summary Hospital Course Hospital Course: HPI:85y/o M pmhx hypertension on lisinopril, high cholesterol, DM, CVA patient stated he was stung by wasp in the left side of his face this morning-then devloped notice rash and itching then gradually started have tongue swelling, patient is been having difficulty swallowing food because the swelling, then started to have some voice change in lip swelling because patient did not feel any improvement decided to come to ED. Patient denied any shortness of breath or chest pain or nausea vomiting or headache or abdominal pain or any new weakness or numbness. Chest x-ray negative, WBC count 15.6, SOFIA creatinine of 1.62. EKG NSR. patient received epinephrine, famotidine, IV Solu-Medrol: Patient's symptoms is to improved significantly but still has facial swelling and minimal lung tongue swelling: Emergency room requested admission for concern for 85-year-old male history of hypertension on lisinopril, high cholesterol, DM, CVA patient stated he was stung by wasp in the left side of his face this morning at 08:00 started to notice rash and itching then gradually started have tongue swelling, patient is been having difficulty swallowing food because the swelling, then started to have some voice change in lip swelling because patient did not feel any improvement decided to come to the hospital for further evaluation. Patient felt chest pain earlier that lasted for few sec without radiation. Hospital course: patient had allregy reaction vs ? anaphlaxis to wasp stung -seems improved with steriods ,famotidine and loratidine. will be going home with epipen, loratidine and famotidine . avoid wasp/bee exposure if possible. Steroids are stopped due to hyperglycemia. sofia-improving with hydration-checked bladder scan, also hold lisinopril and moniter renal function/electrolytes outpatient in 1 week. Diabetes with a hyperglycemia: added glipizide 2 .5 mg qd , stop metformin for now considering acute kidney injury-can repeat BMP in 1 week and if needed can reintroduce metformin and that time consider discontinuing glipizide. Hypertension: Patient blood pressure seems to be fluctuating, discussed with the patient stop lisinopril until BMP repeated outpatient, start hydrochlorothiazide(continue if blood pressure persistently above 140/90s-if it is below that persistently than hold hydrochlorothiazide). Mild anemia normocytic: Denies any melena or recent bleeding. H&H stable around 10, could also be dilution component since patient received IV fluids, monitor CBC outpatient in 1 week. Further workup outpatient. Patient is strongly advised to hydration, monitor BMP outpatient, blood pressure, fingersticks-as well as follow-up in PCP if possible next week . Plan: Stop metformin, lisinopril. Started on glipizide 2.5 mg daily, monitor BMP in 1 week-if renal function seems better than metformin can be reintroduced outpatient, at that time may consider discontinuing glipizide if needed. Patient was strongly advised to monitor fingersticks pre meal t.i.d., blood pressure at least monitor b.i.d., encouraged for hydration. Avoid be or wasp sting. We will hold off steroids since patient improved and steroid causing significant hyperglycemia. ptient blood pressure seems to be fluctuating, discussed with the patient stop lisinopril until BMP repeated outpatient, start hydrochlorothiazide(continue if blood pressure persistently above 140/90s-if it is below that persistently than hold hydrochlorothiazide). h&H stable around 10, could also be dilution component since patient received IV fluids, monitor CBC outpatient in 1 week. Further workup outpatient. Above was discussed with the patient and his in detail length they both understand and in agreement with the above plan, time spent 40 minute. All questions answered. Staff was present during conversation. Time Attestation Total time managing care of this patient today: 40 mintues. Discharge Coordination Time (in mins): 40min Quality: Safe Use of Opioids Does Pt have an Active Cancer Diagnosis on the Problem List?: No Quality: Stroke Does the patient have a stroke diagnosis?: No Physical Exam Vital Signs: Vital Signs: Last Vital Signs Temp 98.7 F 05/10/25 07:59 Pulse 73 05/10/25 07:59 Resp 18 05/10/25 07:59 BP 125/58 L 05/10/25 07:59 Pulse Ox 96 05/10/25 07:59 O2 Del Method Room Air 05/10/25 07:59 BMI result Body Mass Index 23.2 Appearance: Alert.? Oriented X3.? mouth:Moist mucous membranes,mild tongue swellin facial swellin also improving cvs: [id number], [id number] . res: clear to auscultation ,no rhonchii or wheezing abd: no rebound or guarding ,nt, bs present. ext pulses present , no cyanosis . neuro: axo3 , nonfocal. DS: Data Data Completed and Pending Labs on day of discharge: Laboratory Results - last 24 hr 05/09/25 05/09/25 05/10/25 14:07 20:58 05:09 WBC 15.6 H 11.0 H RBC 4.03 L 3.27 L Hgb 12.4 L 9.9 L D Hct 36.2 L 29.2 L MCV 89.8 89.3 MCH 30.8 30.3 MCHC 34.3 33.9 RDW 12.7 12.7 Plt Count 316 243 MPV 10.2 11.0 Immature Gran % (Auto) 0.3 Neut % (Auto) 72.9 Lymph % (Auto) 20.2 Wagoner % (Auto) 6.4 Eos % (Auto) 0.1 Baso % (Auto) 0.1 Lymph # (Auto) 3.2 Wagoner # (Auto) 1.0 Eos # (Auto) 0.0 Baso # (Auto) 0.0 Abs Immat Gran (auto) 0.04 H Absolute Neuts (auto) 11.4 H Absolute Nucleated RBC 0.000 0.000 Nucleated RBC % (auto) 0.0 0.0 Sodium 138 137 Potassium 5.0 D 4.6 Chloride 105 106 Carbon Dioxide 23 21 L Anion Gap 15 15 BUN 36 H 37 H Creatinine 1.62 H 1.44 H Estim Creat Clear Calc 33.1 37.3 Estimated GFR 41 46 POC Glucose 391 H* Random Glucose 269 H 283 H Calcium 9.5 8.8 D Total Creatine Kinase 139 Troponin I High Sens 3.7 B-Natriuretic Peptide 65 05/10/25 07:05 WBC RBC Hgb Hct MCV MCH MCHC RDW Plt Count MPV Immature Gran % (Auto) Neut % (Auto) Lymph % (Auto) Wagoner % (Auto) Eos % (Auto) Baso % (Auto) Lymph # (Auto) Wagoner # (Auto) Eos # (Auto) Baso # (Auto) Abs Immat Gran (auto) Absolute Neuts (auto) Absolute Nucleated RBC Nucleated RBC % (auto) Sodium Potassium Chloride Carbon Dioxide Anion Gap BUN Creatinine Estim Creat Clear Calc Estimated GFR POC Glucose 228 H Random Glucose Calcium Total Creatine Kinase Troponin I High Sens B-Natriuretic Peptide Imaging Chest x-ray: Radiologist's impression: ITS Impressions Chest X-Ray 05/09/25 12:45 IMPRESSION: No acute disease. Discharge Plan Discharge Anticipated Discharge Date/Time: 05/10/25 11:00 Patient Disposition: Home, Self-Care Discharge Diagnosis: allergic reaction to wasp stung Referrals: Garfield Gongora MD [Primary Care Provider, Internal Medicine] - 1 Week Discharge Medications: New loratadine 10 mg Tablet 10 mg PO DAILY Qty: 10 0RF famotidine 20 mg Tablet 20 mg PO DAILY Qty: 15 0RF epinephrine [EpiPen 2-Alvino] 0.3 mg/0.3 mL auto-injector 0.3 mg IM Q10M PRN (Reason: anaphylaxis) Qty: 2 0RF Rx Instructions: for 2 doses glipizide 5 mg Tablet 2.5 mg PO DAILY Qty: 90 0RF Continued simvastatin 20 mg tablet 20 mg PO BEDTIME Qty: 90 1RF hydrochlorothiazide 25 mg tablet 25 mg PO DAILY Qty: 90 1RF insulin glargine [Lantus Solostar U-100 Insulin] 100 unit/mL (3 mL) insulin pen 20 unit subcut BEDTIME Humalog KwikPen Insulin 200 unit/mL (3 mL) insulin pen 10 unit subcut DAILY Centrum Silver Ultra Men's 623-70-120-300 mcg Tablet 1 tab PO DAILY aspirin [Adult Aspirin Regimen] 81 mg tablet,delayed release (DR/EC) 81 mg PO DAILY Held lisinopril 20 mg tablet 20 mg PO DAILY Qty: 90 5RF Hold Instructions: Resume on 05/18/25. Discontinued metformin 1,000 mg tablet 1,000 mg PO BID Qty: 180 1RF Discharge Orders: Discharge Order (Routine); Ordered 05/11/25 Ordered By: Umair Bell Diet: Advance to usual diet Activity on Discharge: As tolerated Stand Alone Forms: Patient Portal Discharge page Print Language: Macedonian Other Ambulatory Orders: Basic Metabolic Panel (Routine) Timeframe: 1 Week Facility: [facility] - Location: Laboratory Ordered By: Umair Bell Complete Blood Count no Diff (Routine) Timeframe: 1 Week Facility: [facility] - Location: Laboratory Ordered By: Umair Bell Care Plan Goals: as below. Health Concerns: sofia improved significantly with hydration -holding lisinopril/hctz.metformin on hold due to sofia. Started on glipizide 2.5 mg daily, monitor BMP in 1 week-if renal function seems better than metformin can be reintroduced outpatient, at that time may consider discontinuing glipizide if needed. Patient was strongly advised to monitor fingersticks pre meal t.i.d., blood pressure at least monitor b.i.d., encouraged for hydration. Avoid be or wasp sting. We will hold off steroids since patient improved and steroid causing significant hyperglycemia. ptient blood pressure seems to be fluctuating, discussed with the patient stop lisinopril until BMP repeated outpatient, start hydrochlorothiazide(continue if blood pressure persistently above 140/90s-if it is below that persistently than hold hydrochlorothiazide). h&H stable around 10, could also be dilution component since patient received IV fluids, monitor CBC outpatient in 1 week. Further workup outpatient. Plan of Treatment: as above . Assessment: as above.
[2025-05-10 11:14] LABS: Glucose, Whole Blood 354 mg/dL (60-115)
[2025-05-10 12:00] VITALS: BP 118/59; PULSE 75; RESP 18; TEMP 37.2; O2SAT 95
[2025-05-10 13:11] LABS: Anion Gap 14 (12-20); Blood Urea Nitrogen 36 mg/dL (9-16); Calcium 8.8 mg/dL (8.4-10.2); Carbon Dioxide 20 mmol/L (22-29); Chloride 107 mmol/L (96-108); Creatinine Clr Calc Pharmacy 38.3; Estimated Glomerular Filt Rate 48; Glucose Random 328 mg/dL (60-115); Potassium 4.4 mmol/L (3.3-5.1); Sodium 137 mmol/L (135-145)
[2025-05-10 15:30] VITALS: BP 119/59; PULSE 67; RESP 18; TEMP 37.7; O2SAT 96
[2025-05-10 15:56] LABS: Glucose, Whole Blood 228 mg/dL (60-115)
--- NOTE | 2025-05-10 16:19 | P.PNIM_ITS ---
Subjective Subjective Date of Service: 05/10/25 Interval History: sofia , allergic reaction Review of Systems Facial swelling and tongue swelling significantly improving, P.o. intake improving also Physical Exam 2 Vital Signs: Vital Signs: Last Vital Signs Temp 100 F 05/10/25 15:30 Pulse 67 05/10/25 15:30 Resp 18 05/10/25 15:30 BP 119/59 L 05/10/25 15:30 Pulse Ox 96 05/10/25 15:30 O2 Del Method Room Air 05/10/25 15:30 BMI result Body Mass Index 23.2 Appearance: Alert.? Oriented X3.? cvs: rrr, [id number] . res: clear to auscultation ,no rhonchii or wheezing abd: no rebound or guarding ,nt, bs present. ext pulses present , no cyanosis . neuro: axo3 , nonfocal. Objective Data Active Medications Acetaminophen (Acetaminophen 325 Mg Tablet) 650 mg PO Q6H PRN PRN Reason: Pain, Mild 1-3,fever,headache Calcium Carbonate (Calcium Carbonate 750 Mg Tab.Chew) 750 mg PO Q4H PRN PRN Reason: Heartburn Dextrose (Dextrose 50 % 25 Gm/50 Ml Syringe) 25 gm IVPUSH Q15M PRN; Protocol PRN Reason: per Hypoglycemia Standing Ord. Famotidine (Famotidine 20 Mg Tablet) 20 mg PO DAILY [facility] Last Admin: 05/10/25 07:42 Dose: 20 mg Documented By: MIGUEL Glucose (Glucose Gel 15 Gm Gel..Gram.) 15 gm PO Q15M PRN; Protocol PRN Reason: per Hypoglycemia Standing Ord. Heparin Sodium (Porcine) (Heparin Sodium,Porcine 5,000 Unit/Ml Vial) 5,000 unit SUBCUT Q12H [facility] Last Admin: 05/10/25 07:41 Dose: 5,000 unit Documented By: MIGUEL Lactated Ringer's (Lr) 1,000 mls @ 100 mls/hr IVCONT .Q10H [facility] Last Infusion: 05/10/25 11:42 Dose: 100 mls/hr Documented By: MIGUEL Insulin Human Lispro (Insulin Lispro 100 Unit/Ml 3 Ml Vial) 0 unit SUBCUT QIDACHS [facility]; Protocol Last Admin: 05/10/25 11:29 Dose: 10 unit Documented By: MIGUEL Loratadine (Loratadine 10 Mg Tablet) 10 mg PO DAILY [facility] Last Admin: 05/10/25 07:41 Dose: 10 mg Documented By: MIGUEL Magnesium Hydroxide (Milk Of Magnesia 30 Ml Oral.Susp) 30 ml PO DAILY PRN PRN Reason: Constipation Melatonin (Melatonin 3 Mg Tablet) 6 mg PO BEDTIME PRN PRN Reason: Insomnia Sodium Chloride (0.9 % Sodium Chloride Flush 3 Ml Syringe) 3 ml IVFLUSH QSHIFT [facility] Last Admin: 05/10/25 07:42 Dose: 3 ml Documented By: MIGUEL Labs 05/10/25 05:09 05/10/25 12:26 Labs: Laboratory Results - last 24 hr 05/09/25 05/09/25 05/10/25 14:07 20:58 05:09 MCV 89.3 MCH 30.3 MCHC 33.9 RDW 12.7 Plt Count 243 MPV 11.0 Absolute Nucleated RBC 0.000 Nucleated RBC % (auto) 0.0 Anion Gap 15 Estim Creat Clear Calc 37.3 Estimated GFR 46 POC Glucose 391 H* Random Glucose 283 H Calcium 8.8 D Total Creatine Kinase 139 05/10/25 05/10/25 05/10/25 07:05 11:06 12:26 MCV MCH MCHC RDW Plt Count MPV Absolute Nucleated RBC Nucleated RBC % (auto) Anion Gap 14 Estim Creat Clear Calc 38.3 Estimated GFR 48 POC Glucose 228 H 354 H* Random Glucose 328 H Calcium 8.8 Total Creatine Kinase 05/10/25 15:52 MCV MCH MCHC RDW Plt Count MPV Absolute Nucleated RBC Nucleated RBC % (auto) Anion Gap Estim Creat Clear Calc Estimated GFR POC Glucose 228 H Random Glucose Calcium Total Creatine Kinase Assessment and Plan (1) Anaphylaxis: Status: Acute (2) SOFIA (acute kidney injury): Status: Acute Plan 85-year-old male history of hypertension on lisinopril, high cholesterol, DM, CVA patient stated he was stung by wasp in the left side of his face this morning at 08:00 started to notice rash and itching then gradually started have tongue swelling, patient is been having difficulty swallowing food because the swelling, then started to have some voice change in lip swelling because patient did not feel any improvement decided to come to the hospital for further evaluation. Patient felt chest pain earlier that lasted for few sec without radiation. Allergic reaction to wasp sting: Continue IV steroids, famotidine, loratadine SOFIA:somewhat improivng IV hydration, monitor renal function electrolyte closely, hold lisinopril, hydrochlorothiazide and metformin for now Diabetes with hyperglycemia : fs still in 250-300 range ,stop steriods ,Fingerstick with adjusted sliding scale coverage Htn: Closely monitor blood pressure Hold lisinopril and hydrochlorothiazide, may use small dose amlodipine if needed. hlp: hold statin for today -has sofia. dvt prophylac: s/cheparin ongoing need for stay : SOFIA and allergic reaction to wasp sting-need renal function electrolyte monitoring as well as monitor blood pressure closely, also need close monitoring for neurologic symptoms. Quality Stroke Does the patient have a stroke diagnosis?: No VTE Prior VTE?: No VTE Risk Level:: Medical - moderate - high VTE Device Contraindication: N/A - Device Ordered VTE Drug Contraindication: N/A - Med Ordered
[2025-05-10 20:00] VITALS: BP 131/62; PULSE 61; RESP 18; TEMP 36.6; O2SAT 96
[2025-05-10 20:55] LABS: Glucose, Whole Blood 292 mg/dL (60-115)
[2025-05-10 23:41] VITALS: BP 125/60; PULSE 65; RESP 18; TEMP 36.2; O2SAT 94
[2025-05-11] MEDS: Lactated Ringers 1,000 ML 100 ML IVCONT (01:06)
[2025-05-11 03:18] VITALS: BP 155/68; PULSE 57; RESP 16; TEMP 36.3; O2SAT 95
[2025-05-11 07:11] VITALS: BP 141/65; PULSE 55; RESP 16; TEMP 36; O2SAT 95
[2025-05-11 07:14] LABS: Glucose, Whole Blood 164 mg/dL (60-115)
[2025-05-11] MEDS: Heparin Sodium,Porcine 5,000 UNIT/ML VIAL 5000 UNIT SUBCUT (08:25)
[2025-05-11] MEDS: Famotidine 20 MG TABLET PO (08:25)
[2025-05-11] MEDS: Insulin Lispro 100 UNIT/ML 3 ML VIAL SUBCUT ×2 (08:26→11:30)
[2025-05-11] MEDS: Loratadine 10 MG TABLET PO (08:26)
[2025-05-11] MEDS: 0.9 % Sodium Chloride Flush 3 ML SYRINGE IVFLUSH (08:33)
[2025-05-11 08:40] LABS: Estimated Average Glucose 166 mg/dL; Hemoglobin A1C 151.1433 umol/L; Hemoglobin A1c % 7.4 % (<6.0)
[2025-05-11 09:05] LABS: Blood Urea Nitrogen 40 mg/dL (9-16); Calcium 8.6 mg/dL (8.4-10.2); Creatinine Clr Calc Pharmacy 39.8; Estimated Glomerular Filt Rate 50; Glucose Random 181 mg/dL (60-115)
[2025-05-11 09:21] LABS: Anion Gap 13 (12-20); Carbon Dioxide 25 mmol/L (22-29); Chloride 108 mmol/L (96-108); Potassium 4.5 mmol/L (3.3-5.1); Sodium 141 mmol/L (135-145)
[2025-05-11 09:37] LABS: Hematocrit 28.7 % (42.0-52.0)
[2025-05-11 10:37] LABS: Hemoglobin 9.9 g/dl (14.0-18.0)
[2025-05-11 11:05] LABS: Glucose, Whole Blood 294 mg/dL (60-115)
[2025-05-11] MEDS: Atorvastatin Calcium 10 MG TABLET PO (11:30)
[2025-05-11 11:31] VITALS: BP 139/92; PULSE 65; RESP 16; TEMP 36.2; O2SAT 97
--- NOTE | 2025-05-11 12:10 | MHC.CM.PN ---
Patient medically cleared for dc home self care, private transport.
== END 2025-05-11 12:54 | disposition home or self-care (01) ==
LOC: HO.ED 16:13 → HO.EDOVER 17:22 → HO.S3 19:21
PROVIDERS: Admitting Provider Internal Medicine; Emergency Provider Emergency Medicine; PCP Internal Medicine; Visit Provider Internal Medicine
DX: T63.461A Toxic effect of venom of wasps, accidental (unintentional), initial encounter (principal); T78.2XXA Anaphylactic shock, unspecified, initial encounter; X58.XXXA Exposure to other specified factors, initial encounter; R21 Rash and other nonspecific skin eruption; N17.9 Acute kidney failure, unspecified; D50.8 Other iron deficiency anemias; R07.9 Chest pain, unspecified; E11.9 Type 2 diabetes mellitus without complications; I10 Essential (primary) hypertension; Z79.899 Other long term (current) drug therapy; Z86.73 Personal history of transient ischemic attack (TIA), and cerebral infarction without residual deficits
CPT/HCPCS: 36415; 71045; 80048; 82550; 82947; 83036; 83880; 84484; 85014; 85018; 85025; 85027; 93005; 96361; 96372; 96374; 96375; 96376; 99221; 99285; J0171; J1200; J1308; J1644; J2919; J7120

== ENCOUNTER → 2025-05-09 12:38 | Outpatient (BNV) | payer MEDICARE, SELFPAY | PROVIDERS: Admitting Provider Internal Medicine; Emergency Provider Emergency Medicine; PCP Internal Medicine; Visit Provider Internal Medicine | DX: R07.9 Chest pain, unspecified (principal); T78.40XA Allergy, unspecified, initial encounter | CPT/HCPCS: 93010 ==

== ENCOUNTER → 2025-05-09 13:04 | Outpatient (BNV) | payer MEDICARE, SELFPAY | PROVIDERS: Emergency Provider Emergency Medicine; PCP Internal Medicine; Visit Provider Radiology Diagnostic Radiology | DX: R52 Pain, unspecified (principal) | CPT/HCPCS: 71045 ==

== ENCOUNTER → 2025-05-09 16:12 | Outpatient (BNV) | payer MEDICARE, SELFPAY | PROVIDERS: Admitting Provider Internal Medicine; Emergency Provider Emergency Medicine; PCP Internal Medicine; Visit Provider Internal Medicine | DX: T78.2XXA Anaphylactic shock, unspecified, initial encounter (principal) | CPT/HCPCS: 99239 ==

== ENCOUNTER 2025-05-13 08:10 | Outpatient (REF) | payer MEDICARE, SELFPAY ==
--- OUTSIDE RECORDS SUMMARY | 2025-05-13 08:15 | XMS_ITS | Patient Health Record ---
Author Organization [facility] Address [address] [place] [address] Care Team Providers Care Press Operator Helper Name Role Phone Silvio Barrios [phone] Reason For Referral No Information Plan Of Treatment No Information
[2025-05-13 08:55] LABS: Hematocrit 33.6 % (42.0-52.0); Hemoglobin 11.4 g/dl (14.0-18.0); Mean Corpuscular HGB Conc 33.9 g/dl (31.0-36.0); Mean Corpuscular Hemoglobin 30.6 pg (27.0-33.0); Mean Corpuscular Volume 90.3 fL (80.0-98.0); Mean Platelet Volume 10.2 fL (9.4-12.4); Platelet Count 283 X10*3/uL (160-400); Red Blood Count 3.72 X10*6/uL (4.60-5.80); Red Cell Distribution Width 12.9 % (11.0-16.0); White Blood Count 8.4 X10*3/uL (4.8-10.8)
[2025-05-13 09:09] LABS: Estimated Average Glucose 166 mg/dL; Hemoglobin A1c % 7.4 % (<6.0); Total Hemoglobin (HGBA1C) 2956.0829 umol/L
[2025-05-13 09:39] LABS: Appearance Urine Clear; Color Urine Yellow; Glucose Urine UA >=1000 mg/dL (Negative); Leukocyte Esterase Urine Negative (Negative); Nitrite Urine Negative (Negative); UMIC TRIGGER UA YES; Urine Blood Negative (Negative); Urine Ketones Negative (Negative); Urine Protein Negative (Neg-Trace)
[2025-05-13 09:42] LABS: Alanine Aminotransferase 31 U/L (0-40); Alkaline Phosphatase 58 U/L (39-117); Anion Gap 11 (12-20); Aspartate Amino Transferase 30 U/L (5-37); Bilirubin Direct 0.2 mg/dL (0.0-0.5); Bilirubin Total 0.4 mg/dL (0.0-1.0); Blood Urea Nitrogen 32 mg/dL (9-16); Carbon Dioxide 24 mmol/L (22-29); Chloride 109 mmol/L (96-108); Cholesterol 172 mg/dL (<200); Estimated Glomerular Filt Rate 55; Glucose Random 190 mg/dL (60-115); HDL Cholesterol 56 mg/dL (>40); LDL Cholesterol Calculated 91 mg/dL (<100); Potassium 4.9 mmol/L (3.3-5.1); Sodium 139 mmol/L (135-145); Total Protein 7.2 g/dL (6.5-8.0); Triglycerides 126 mg/dL (<150)
[2025-05-13 09:48] LABS: Creatinine Urine 48.97 mg/dL; Microalbum/Creatinine Ratio Ur 12.2 ug/mg cr (<30)
[2025-05-13 09:50] LABS: Bacteria Urine None Seen (None Seen); Hyaline Casts Urine 0-2 /LPF (0-2); RBC Urine 0-2 /HPF (0-2); Squamous Epithelial Cell Urine 0-2 /HPF (0-2); WBC Urine 0-5 /HPF (0-5)
[2025-05-13 10:00] LABS: Thyroid Stimulating Hormone 1.32 uIU/mL (0.32-4.0)
== END 2025-05-13 08:11 | disposition home or self-care (01) ==
LOC: HO.LAB 08:10
PROVIDERS: PCP Internal Medicine; Visit Provider Internal Medicine
DX: I10 Essential (primary) hypertension (principal); E78.5 Hyperlipidemia, unspecified; E11.9 Type 2 diabetes mellitus without complications
CPT/HCPCS: 36415; 80048; 80061; 80076; 81001; 81003; 82043; 82570; 83036; 84443; 85027

== ENCOUNTER 2025-05-16 08:25 | Outpatient (AMB) | payer MEDICARE, SELFPAY ==
--- OUTSIDE RECORDS SUMMARY | 2025-05-16 08:28 | XMS_ITS | Clinical Summary ---
Author Organization [facility] Address [address] [place] [address] Care Team Providers Care Yard Driver Name Role Phone Unavailable Primary Care Provider Unavailabl e Immunizations Immunization Administration Dates Next Due Influenza, seasonal, injectable, [...] - 1-dose 75+ series) 2013 COVID-19 Vaccine (2 - 2023-2 5 season) 2025 08/23/2024 Influenza Vaccine Completed 08/23/2024 HIB Vaccines [...] patient's age to complete this topic Meningococcal B Vaccine Aged Out No l onger eligible based on patient's age to complete this topic Meningococcal Vaccine Aged Out No krysta chun eligible based on patient's age to complete this topic RSV under 20 months Aged Out No longe r eligible based on patient's age to complete this topic Rotavirus Vaccines Aged Out No longer eligible based on patient's age to complete this topic Insurance [facility] MEDICARE SUPPLEMENT
--- OUTSIDE RECORDS SUMMARY | 2025-05-16 08:28 | XMS_ITS | Patient Health Record ---
Author Organization [facility] Address [address] [place] [address] Care Team Providers Care Encoding Machine Operator Name Role Phone Silvio Barrios [phone] Reason For Referral No Information Plan Of Treatment No Information
--- NOTE | 2025-05-16 08:57 | MHC.PC.OV ---
Vital Signs 05/16/25 08:59 Height 5 ft 10 in Weight 158 lb 6 oz BMI 22.7 BP 126/64 Blood Pressure Location Lt brachial Position Sitting Pulse 94 Pulse Source Pulse Oximeter Temp 97.3 F Temp Source Temporal Artery Scan Pulse Oximetry (%) 98 Oxygen Delivery Method Room Air Intake Visit Reasons[place] [facility] [place], discharged 05/11, Oracle Technical Developer Required: No Accompanied by: Self / Same As Patient Allergies No Known Allergies Allergy (Verified 05/16/25 09:02) Medication List - Last Reconciled 05/16/25 by Sammi Daurte PA-C aspirin (Adult Aspirin Regimen) 81 mg PO DAILY epinephrine (EpiPen 2-Alvino) 0.3 mg (0.3 mL) IM Q10M PRN famotidine 20 mg PO DAILY glipizide 2.5 mg (1/2 x 5 mg) PO DAILY hydrochlorothiazide 25 mg PO DAILY insulin glargine (Lantus Solostar U-100 Insulin) 20 units subcut BEDTIME insulin lispro (Humalog KwikPen U-200 Insulin) 10 units subcut DAILY lisinopril 20 mg PO DAILY Held on 05/11/25. Instructions: Resume on 05/18/25. loratadine 10 mg PO DAILY [id number] [id number] mcg (Centrum Silver Ultra Men's) 1 tab PO DAILY simvastatin 20 mg PO BEDTIME Tobacco use date assessed: 02/21/25 Fall risk assessment: No Falls in past year Last assessed Fall Risk: 05/16/25 Dental Screening Dental Screen Date: 02/21/25 HPI C allergic reaction, discharged 05/11, HPI Details 85-year-old male with past medical history of anemia, diabetes mellitus, hypertension, history of CVA, hyperlipidemia last seen by Dr. Gongora 02/2025 coming in for hospital discharge follow up. In review of the notes, patient was seen in [facility] 05/09/2025 after being stung by a wasp which resulted in lip swelling and throat swelling patient was given epinephrine, famotidine and IV Solu-Medrol symptoms improved significantly. Admission was requested and admitted to observation. He was found to have SOFIA improving with hydration advised to hold lisinopril and monitor renal function/electrolytes after 1 week. Glipizide was added to diabetic regimen and metformin was stopped due to acute kidney injury. Metformin and lisinopril discontinued, metformin may be reintroduced if BMP proves.?Patient was discharged home with EpiPen 05/11/2025. Presenting with a follow-up for anaphylactic reaction to a wasp sting and management of diabetes and kidney function issues. The patient experienced a severe allergic reaction after being stung by a wasp, which included widespread rash, swelling, and loss of speech due to tongue swelling. He was treated in the emergency department with steroids, which resolved the rash and swelling. The patient has a long-standing history of diabetes, managed with metformin for over 40 years, which was recently stopped due to kidney concerns. Blood sugar levels have been monitored, with recent readings showing improvement after starting glipizide. The patient's kidney function was affected, possibly due to dehydration, leading to the temporary cessation of metformin. Recent blood work indicates improved kidney function, allowing for the potential reintroduction of metformin. The patient is currently on hydrochlorothiazide for blood pressure management, with lisinopril on hold. Recent blood work showed elevated cholesterol levels, which have been lower in the past. TCM TCM Information Date of Discharge 05/09/25 Discharged From [facility] Interactive Contact Date (Reference documentation from this date) 05/11/25 [facility] Medical History Osteoarthritis Cerebrovascular accident (CVA) determined by clinical assessment Hypercholesterolemia Essential hypertension Type 2 diabetes mellitus without complications Medicare annual wellness visit, initial Surgical History History of colonoscopy History of hernia repair History of appendectomy Family History Father Medical history unknown Mother Medical history unknown Social History Housing: House Alcohol intake: current Alcohol intake frequency: holidays/special occasions only Patient Tobacco Use Status: Never used Tobacco e-Cigarette/Vaping Use: Never Used Second Hand Smoke Exposure: No service: No Current occupational status: retired Cognitive needs: No Hearing needs: No Vision needs: Yes (Glasses) Questionnaire Thrive Questionnaire Date Thrive assessed: 05/16/25 LAKEISHA-7 AMB Questionnaire LAKEISHA-7 Date LAKEISHA - 7 assessed: 05/16/25 Source: Developed by Drs. Silvio Montes, Yahaira Krause, Mauricio Jenkins and colleagues, with an educational vinayak from [employer]. Review of Systems Const Denies body aches, Denies chills, Denies fever(s), Denies headache(s) and Denies poor appetite Eyes Reports no additional complaints ENT Denies dysphagia, Denies dizziness, Denies headache(s) and Denies odynophagia Card Denies chest pain, Denies syncope, Denies edema, Denies irregular heart rhythm, Denies lightheadedness and Denies dyspnea Resp Denies cough and Denies dyspnea GI Denies abdominal pain, Denies constipation, Denies dysphagia, Denies diarrhea, Denies nausea, Denies odynophagia and Denies vomiting Reports no additional complaints Musc Reports no additional complaints and Denies abnormal gait Skin/Breast Reports system reviewed and no additional complaints, except as documented Neuro Denies abnormal gait, Denies dizziness, Denies syncope and Denies headache(s) Psych Reports no additional complaints Physical exam (Primary Care) Tobacco/Smoking Status: Tobacco use Status Tobacco use date assessed 02/21/25 05/16/25 08:57 Patient Tobacco Use Status Never used Tobacco 05/16/25 08:57 e-Cigarette/Vaping Use Never Used 05/16/25 08:57 Thrive Assessment: Date of Thrive Assessment Date Thrive assessed 02/21/25 05/16/25 08:57 Const General: cooperative, healthy appearing, comfortable and no acute distress Orientation/consciousness: patient oriented x3 HENMT Head: Yes normocephalic Ears: hearing grossly normal bilaterally General nose exam: Normal external nose present Eyes General: appearance normal, both eyes and all related structures Conjunctivae: conjunctivae normal Neck Neck: Yes full ROM and Yes no lymphadenopathy Resp Effort & Inspection: normal respiratory effort Auscultation: clear to auscultation bilaterally, no crackles, no rales, no rhonchi and no wheezes Cardio Rate: regular rate Rhythm: regular rhythm Skin General skin exam: no rashes or lesions noted Neuro General: patient oriented x3 Gait exam (Neuro): Normal gait present Extrem General: Yes normal to inspection, Yes full ROM and No edema Psych Affect: normal affect Attitude: cooperative Insight: Good insight present (Psych) Judgement: Good judgement present (Psych) Coding Level of Care Code TCM Mod MDM <= 7 Days Complex EM visit Add On G2211 Diagnoses Anaphylaxis, initial encounter T78.2XXA Encounter type: initial encounter Essential hypertension I10 Type 2 diabetes mellitus without complications E11.9 SOFIA (acute kidney injury) N17.9 Hyperlipidemia E78.5 Assessment & Plan Assessment & Plan (1) Anaphylaxis: Code(s): T78.2XXA - Anaphylactic shock, unspecified, initial encounter Category: Medical Qualifiers: Encounter type: initial encounter Qualified Code(s): T78.2XXA - Anaphylactic shock, unspecified, initial encounter Plan: Symptoms have resolved at this time, airways intact and no facial swelling. Patient was discharged from the ED with an EpiPen and avoid wasps if possible. (2) Essential hypertension: Code(s): I10 - Essential (primary) hypertension Category: Medical Plan: Continue on current blood pressure medication. Avoid salt intake and encourage healthy diet and regular exercise. Patient's lisinopril was discontinued due to his acute kidney injury and patient was started on hydrochlorothiazide. Plan to reorder for BMP and consider restarting lisinopril if kidney function has normalized. His blood pressure is within normal limits in the office today. He also routinely has his blood pressure checked with the senior center and has provided the log today. The majority of the values are within normal limits with scattered mildly elevated blood pressures. Blood pressure from 05/15/25 126/70 (3) Type 2 diabetes mellitus without complications: Code(s): E11.9 - Type 2 diabetes mellitus without complications Category: Medical Plan: Decrease the amount of carbohydrates such as pasta, bread, rice, and potatoes and limit the amount of sweets. Although fruits are generally healthy they should be eaten in moderation as they are still high in sugar. Hemoglobin A1c goal of less than 7%. Patient was discontinued from his metformin due to his acute kidney injury and was placed on glipizide. Per ED notes may restart on metformin if kidney function has normalized. Most recent blood work 05/13/2025 showing improvement in creatinine recommend restarting metformin at a lower dose 500 mg b.i.d. in conjunction with the glipizide 2.5 mg daily. Plan to repeat blood work in 1 month (4) SOFIA (acute kidney injury): Code(s): N17.9 - Acute kidney failure, unspecified Category: Medical Plan: Patient found to have acute kidney injury while in the ED which they believed to be secondary to dehydration. Most recent kidney function has improved. (5) Hyperlipidemia: Code(s): E78.5 - Hyperlipidemia, unspecified Category: Medical Plan: Avoid foods that are high in cholesterol such as red meat, fried foods, eggs and baked goods. Triglyceride goal of less than 150 and LDL goal of less than 70. Continue on simvastatin 20. I did discuss with the patient his cholesterol is elevated on last blood work recommend increasing simvastatin to 40 mg. Patient would like to hold often retest blood work in 3 months Plan The patient will continue with glipizide for diabetes management, with plans to reintroduce metformin due to improved kidney function. Blood sugar levels will be monitored closely to ensure stability. The patient is advised to maintain adequate hydration to support kidney health. The lisinopril will remain on hold, and blood pressure will be managed with hydrochlorothiazide. Regular monitoring of blood pressure at the [facility] is recommended, and any significant changes should be reported. The patient will undergo fasting blood work before the next appointment to reassess cholesterol levels and kidney function. Follow-up is scheduled in three months to evaluate the effectiveness of the current management plan and make necessary adjustments. This note was constructed using voice recognition software. While every effort has been made to ensure accuracy and bobbin cleaner hand, still areas may have been included sometimes these areas may affect the content or meeting of the given symptoms. Total time spent caring for the patient today was 30 minutes. This includes time spent before the visit reviewing the chart, time spent during the visit, and time spent after the visit and documentation. Patient was informed and verbally consented to the use of an ambient scribe for clinic note documentation during this visit. Orders: Orders Hemoglobin A1c Today E11.65 - Type 2 diabetes mellitus with hyperglycemia Comprehensive Met. Panel Today E11.9 - Type 2 diabetes mellitus without complications, Z00.00 - Encounter for general adult medical examination without abnormal findings Lipid Panel 3 Months E78.00 - Pure hypercholesterolemia, unspecified Complete Blood Count Auto Diff Today E11.9 - Type 2 diabetes mellitus without complications, Z00.00 - Encounter for general adult medical examination without abnormal findings Medications: New metformin 500 mg PO BID 180 tabs 0RF 3 months
[2025-05-16 08:59] VITALS: BP 126/64; PULSE 94; TEMP 36.3; O2SAT 98; BMI 22.7
== END 2025-05-16 09:37 | disposition home or self-care (01) ==
LOC: HO.HMCH 08:26
PROVIDERS: PCP Internal Medicine
DX: E11.69 Type 2 diabetes mellitus with other specified complication (principal); T78.2XXA Anaphylactic shock, unspecified, initial encounter; I10 Essential (primary) hypertension; N17.9 Acute kidney failure, unspecified; E78.5 Hyperlipidemia, unspecified

== ENCOUNTER → 2025-05-16 08:25 | Outpatient (BNVA) | payer MEDICARE, SELFPAY | PROVIDERS: PCP Internal Medicine | DX: T78.2XXD Anaphylactic shock, unspecified, subsequent encounter (principal); E11.65 Type 2 diabetes mellitus with hyperglycemia; E78.5 Hyperlipidemia, unspecified; I10 Essential (primary) hypertension; N17.9 Acute kidney failure, unspecified; Z86.73 Personal history of transient ischemic attack (TIA), and cerebral infarction without residual deficits; T63.461D Toxic effect of venom of wasps, accidental (unintentional), subsequent encounter | CPT/HCPCS: 99495 ==

== ENCOUNTER 2025-08-19 07:39 | Outpatient (REF) | payer MEDICARE, SELFPAY ==
--- OUTSIDE RECORDS SUMMARY | 2025-08-19 07:42 | XMS_ITS | Patient Health Record ---
Author Organization [facility] Address [address] [place] [address] Care Team Providers Care Perl Software Engineer Name Role Phone Silvio Barrios [phone] Reason For Referral No Information Plan Of Treatment No Information
--- OUTSIDE RECORDS SUMMARY | 2025-08-19 07:42 | XMS_ITS | Clinical Summary ---
Author Organization [employer] Address [address] [place] [address] Care Team Providers Care Hand Tacker Name Role Phone Unavailable Primary Care Provider [...] 2023-2 5 season) 2025 08/23/2024 Influenza Vaccine (#1) 2025 08/23/2024 HIB Vaccines Aged Out No longer [...] patient's age to complete this topic Insurance [facility] MEDICARE SUPPLEMENT
[2025-08-19 10:54] LABS: MANUAL DIFF FLAG NO
[2025-08-19 11:02] LABS: Hematocrit 33.6 % (42.0-52.0); Hemoglobin 11.4 g/dl (14.0-18.0); Imm Gran Abs Auto 0.03 X10*3/uL (0.00-0.03); Imm Gran Pct Auto 0.4 % (0.0-0.4); Lymphocytes Absolute Auto 2.1 X10*3/uL (1.2-4.9); Mean Corpuscular HGB Conc 33.9 g/dl (31.0-36.0); Mean Corpuscular Hemoglobin 29.8 pg (27.0-33.0); Mean Corpuscular Volume 88.0 fL (80.0-98.0); NRBC Abs Auto 0.000 X10*3/uL (0.0-0.012); NRBC Pct Auto 0.0 /100WBC (0.0-0.2); Platelet Count 325 X10*3/uL (160-400); Red Blood Count 3.82 X10*6/uL (4.60-5.80); White Blood Count 8.2 X10*3/uL (4.8-10.8)
[2025-08-19 11:11] LABS: Alanine Aminotransferase 18 U/L (0-40); Albumin Level 4.3 g/dL (3.5-5.0); Alkaline Phosphatase 63 U/L (39-117); Anion Gap 12 (12-20); Aspartate Amino Transferase 26 U/L (5-37); Blood Urea Nitrogen 33 mg/dL (9-16); Calcium 9.8 mg/dL (8.4-10.2); Carbon Dioxide 25 mmol/L (22-29); Chloride 108 mmol/L (96-108); Cholesterol 151 mg/dL (<200); Estimated Glomerular Filt Rate 49; HDL Cholesterol 49 mg/dL (>40); Potassium 4.9 mmol/L (3.3-5.1); Sodium 140 mmol/L (135-145); Total Protein 7.7 g/dL (6.5-8.0); Triglycerides 102 mg/dL (<150)
== END 2025-08-19 07:40 | disposition home or self-care (01) ==
LOC: HO.10HDL 07:39
DX: Z00.00 Encounter for general adult medical examination without abnormal findings (principal); E78.00 Pure hypercholesterolemia, unspecified; E11.65 Type 2 diabetes mellitus with hyperglycemia
CPT/HCPCS: 36415; 80053; 80061; 83036; 85025

== ENCOUNTER 2025-08-28 12:33 | Outpatient (AMB) | payer MEDICARE, SELFPAY ==
--- NOTE | 2025-08-28 12:57 | A.OFFPC_ITS ---
Vital Signs 08/28/25 12:58 Height 5 ft 10 in Weight 162 lb 8 oz BMI 23.3 BP 132/60 Blood Pressure Location Rt brachial Position Sitting Pulse 82 Pulse Source Pulse Oximeter Temp 97.1 F Temp Source Temporal Artery Scan Pulse Oximetry (%) 97 Oxygen Delivery Method Room Air Intake Visit Reasons: 3M follow up Intake Note: Patient is here to follow up on DM, SOFIA, HLD, HTN. Line Assembler Aircraft Required: No Central Service Tech: Not Required per policy Accompanied by: Self / Same As Patient Allergies No Known Allergies Allergy (Verified 08/28/25 12:58) Tobacco use date assessed: 08/28/25 Fall risk assessment: No Falls in past year Last assessed Fall Risk: 08/28/25 Dental Screening Dental Screen Date: 02/21/25 HPI 3M follow up HPI Details 85-year-old male presents to the office for a follow-up visit. Since last office visit, patient was in the emergency room and admitted for anaphylaxis. It started after a bee sting and quickly spread to swelling of his face with difficulty breathing. Patient responded very well to antihistamines, steroids and oxygen in the hospital. As a result of taking steroids over a few days, his blood sugars have spiked. Continues to take the same amount of insulin and metformin. Only in the last few days has the sugars reached his baseline levels. In the last 6 months patient has noticed fatigue but is able to do all his ac tivities of daily living. Continues to drive. No difficulty with urination. [facility] Medical History Osteoarthritis Cerebrovascular accident (CVA) determined by clinical assessment Hypercholesterolemia Essential hypertension Type 2 diabetes mellitus without complications Medicare annual wellness visit, initial Surgical History History of colonoscopy History of hernia repair History of appendectomy Family History Father Medical history unknown Mother Medical history unknown Social History Housing: House Alcohol intake: current Alcohol intake frequency: holidays/special occasions only Patient Tobacco Use Status: Never used Tobacco e-Cigarette/Vaping Use: Never Used Second Hand Smoke Exposure: No service: No Current occupational status: retired Cognitive needs: No Hearing needs: No Vision needs: Yes (Glasses) Questionnaire PHQ-9 Over the last 2 weeks, how often have you been bothered by any of the following problems? 1. Little interest or pleasure in doing things: not at all 2. Feeling down, depressed, or hopeless: not at all 3. Trouble falling or staying asleep, or sleeping too much: not at all 4. Feeling tired or having little energy: not at all 5. Poor appetite or overeating: not at all 6. Feeling bad about yourself - or that you are a failure or have let yourself or your family down: not at all 7. Trouble concentrating on things, such as reading the newspaper or watching television: not at all 8. Moving or speaking so slowly that other people could have noticed. Or the opposite - being so fidgety or restless that you have been moving around a lot more than usual: not at all 9. Thoughts that you would be better off or of hurting yourself in some way: not at all Total score: 0 Depression Screening Interpretation: Negative Depression Screening Done: Yes Source: Developed by Drs. Silvio Montes, Yahaira Krause, Mauricio Jenkins and colleagues, with an educational vinayak from [employer]. Thrive Questionnaire Date Thrive assessed: 05/16/25 I am a: Patient What is your living situation today?: I have a steady place to live Within the past 12 months, did the food you bought not last and you didn't have the money to get more?: Never true Within the past 12 months, did you worry whether your food would run out before you got money to buy more?: Never true Do you have trouble paying for medicines?: No Do you have trouble getting transportation to medical appointments?: No Do you have trouble paying your heating and electricity bill?: No Do you have trouble taking care of your child, family member or friend?: No Do you have trouble with day-to-day activities such as bathing, preparing meals, shopping, managing finances, etc.?: No Are you currently unemployed and looking for a job?: Yes Are you interested in more education?: No Please select the resources that you would like help with: None Currently or been in a relationship where the following occur: No concerns reported THRIVE Score: 0 AUDIT C Alcohol Use Questionnaire (AUDIT-C) 1. How often do you have a drink containing alcohol?: Never Total Score: 0 LAKEISHA-7 AMB Questionnaire LAKEISHA-7 Date LAKEISHA - 7 assessed: 05/16/25 Feeling nervous, anxious, or on edge: 0 = Not at all Not being able to stop or control worryin = Not at all Worrying too much about different things: 0 = Not at all Trouble relaxin = Not at all Being so restless that it is hard to sit still: 0 = Not at all Becoming easily annoyed or irritable: 0 = Not at all Feeling afraid as if something awful might happen: 0 = Not at all Total LAKEISHA-7 score (0-4 normal; 5-9 mild; 10-14 moderate; 15-21 severe): 0 Source: Developed by Drs. Silvio Montes, Yahaira Krause, Mauricio Jenkins and colleagues, with an educational vinayak from [employer]. Physical exam (Primary Care) Vital Signs: Last Vital Signs Temp 97.1 F 08/28/25 12:58 Pulse 82 08/28/25 12:58 BP 132/60 08/28/25 12:58 Pulse Ox 97 08/28/25 12:58 Oxygen Delivery Method Room Air 08/28/25 12:58 BMI result Body Mass Index 23.3 Tobacco/Smoking Status: Tobacco use Status Tobacco use date assessed 08/28/25 08/28/25 13:04 Patient Tobacco Use Status Never used Tobacco 08/28/25 13:04 e-Cigarette/Vaping Use Never Used 08/28/25 13:04 PHQ-9: PHQ-9 Score PHQ-9: Total score 0 08/28/25 13:39 Depression Screening Interpretation: Negative Thrive Assessment: Date of Thrive Assessment Date Thrive assessed 05/16/25 08/28/25 13:04 Currently or been in a relationship where the following occur: No concerns reported Const General: cooperative and healthy appearing Nutritional Appearance: well nourished Orientation/consciousness: patient oriented x3 Limitations: no limitations HENMT Head: Yes normal to inspection Eyes General: appearance normal, both eyes and all related structures Neck Neck: Yes normal visual inspection Chest Chest palpation & inspection: normal palpation of entire chest wall Resp Effort & Inspection: normal respiratory effort Neuro General: patient oriented x3 Office Procedures Flu Questionnaire Does the patient have a severe egg allergy?: No Does the patient have severe life threatening allergies?: No Does the patient have a fever or illness today?: No Has the patient ever had Guillain-Hudson Syndrome?: No Has the patient ever had any past reaction to a flu shot?: No Immunizations Fluarix [id number] (PF) 45 mcg (15 mcg x 3)/0.5 mL IM syringe Performing Provider: Garfield Gongora MD [place] [facility] [place] [facility] Administered by: Lisa Pete CMA on 08/28/25 13:41 Dose Route Admin Location Dispensed Lot Number Expiration Date NDC Physical Scientist 0.5 mL IM Right Deltoid 0.5 mL [id number] 05/13/26 [id number] [employer] VIS Given Date VIS Provided VIS Publication Date 08/28/25 Single Vaccine 24 Eligibility Eligibility Date Funding Source Not [facility] Eligible 08/28/25 Private Coding Level of Care Code Est Pt Level 4 (69932) Complex EM visit Add On G2211 Diagnoses Type 2 diabetes mellitus without complications E11.9 Assessment & Plan Assessment & Plan (1) Type 2 diabetes mellitus without complications: Code(s): E11.9 - Type 2 diabetes mellitus without complications Category: Medical Plan: EpiPen ordered for immediate treatment of anaphylactic reactions. Continue same dosage on the diabetic medications as blood sugars have returned to baseline. Patient has been offered the influenza vaccine. Orders: Orders Influenza [id number] Immunization Today Z23 - Encounter for immunization Medications: New epinephrine (EpiPen) 0.3 mg (0.3 mL) IM Q4H PRN 2 ea 0RF anaphylaxis
[2025-08-28 12:58] VITALS: BP 132/60; PULSE 82; TEMP 36.2; O2SAT 97; BMI 23.3
--- OUTSIDE RECORDS SUMMARY | 2025-08-28 15:48 | XMS_ITS | Clinical Summary ---
Author Organization [employer] Address [address] [place] [address] Care Team Providers Care Research And Development Technician Name Role Phone Unavailable Primary Care Provider [...] to complete this topic Insurance [facility] MEDICARE SUPPLEMENT
== END 2025-08-28 13:48 | disposition home or self-care (01) ==
LOC: HO.HMCH 12:34
PROVIDERS: PCP Internal Medicine; Visit Provider Internal Medicine
DX: Z23 Encounter for immunization (principal); E11.9 Type 2 diabetes mellitus without complications

== ENCOUNTER → 2025-08-28 12:33 | Outpatient (BNVA) | payer MEDICARE, SELFPAY | PROVIDERS: PCP Internal Medicine; Visit Provider Internal Medicine | DX: E11.9 Type 2 diabetes mellitus without complications (principal); R53.83 Other fatigue; Z23 Encounter for immunization; Z79.52 Long term (current) use of systemic steroids | CPT/HCPCS: 90471; 90656; 96127; 99212 ==